=== PATIENT | female | born 1995 | race Caucasian/White ===

== ENCOUNTER 2018-04-01 20:02 | Emergency (ER) | payer OTHER ==
--- NOTE | 2018-04-01 20:52 | ED ---
- HPI Summary HPI Summary: 22F at 6 weeks LMP February 18 presents with cramping for the past week. She states that the cramping has become more intense. She denies any vomiting but admits occasional nausea. She denies any fevers. She denies any diarrhea or constipation. She denies any dysuria, hematuria, urgency or frequency. She denies any vaginal discharge. She denies any vaginal bleeding. She has no medical conditions. - History of Current Complaint Chief Complaint: EDAbdPain Stated Complaint: 6 WEEKS , CRAMPING Time Seen by Provider: 04/01/18 20:20 Pain Intensity: 6 - Allergies/Home Medications Allergies/Adverse Reactions: Allergies Allergy/AdvReac Type Severity Reaction Status Date / Time Penicillins Allergy Rash Verified 04/01/18 20:07 PMH/Surg Hx/FS Hx/Imm Hx Endocrine/Hematology History: Denies: Hx Anticoagulant Therapy Cardiovascular History: Denies: Hx Myocardial Infarction Infectious Disease History: No Infectious Disease History: Denies: Traveled Outside the [place] in Last 30 Days - Family History Known Family History: Negative: Blood Disorder - Social History Alcohol Use: None Substance Use Type: Reports: None Smoking Status (MU): Never Smoked Tobacco Review of Systems Negative: Fever Negative: Chest Pain Negative: Shortness Of Breath Positive: Abdominal Pain, Nausea. Negative: Vomiting All Other Systems Reviewed And Are Negative: Yes Physical Exam - Physical Exam Triage Information Reviewed: Yes Vital Signs Reviewed: Yes Appearance: Positive: Well-Appearing Skin: Positive: Warm, Dry Head/Face: Positive: Normal Head/Face Inspection Eyes: Positive: Normal, Conjunctiva Clear Respiratory/Lung Sounds: Positive: Clear to Auscultation, Breath Sounds Present Cardiovascular: Positive: Normal, RRR Abdomen Description: Positive: Soft, Other: - mild suprapubic tenderness Bowel Sounds: Positive: Present Musculoskeletal: Positive: Normal Neurological: Positive: Normal Psychiatric: Positive: Normal Diagnostics - Vital Signs Vital Signs Temp Pulse Resp BP Pulse Ox 04/01/18 20:04 98.6 F 90 16 123/74 98 - Laboratory Result Diagrams: 04/01/18 21:18 04/01/18 21:18 Lab Statement: Any lab studies that have been ordered have been reviewed, and results considered in the medical decision making process. - Ultrasound No standard instances Ultrasound Interpretation: Positive (See Comments) - single intrauterine gestation, complex focus in left ovary Ultrasound Interpretation Completed By: Radiologist Course/Dx - Course Course Of Treatment: 22F at 6 weeks LMP February 18 presents with cramping for the past week. She states that the cramping has become more intense. She denies any vomiting but admits occasional nausea. She denies any fevers. She denies any diarrhea or constipation. She denies any dysuria, hematuria, urgency or frequency. She denies any vaginal discharge. She denies any vaginal bleeding. She has no medical conditions. on exam has tenderness suprapubic. wbc normal. hcg [id number]. transvaginal u/s shows intrauterine and ovarian cyst. will have follow up with ob. patient understand and agrees with plan. - Differential Diagnosis/HQI/PQRI: Spontaneous , Ectopic , Intrauterine - Diagnoses Provider Diagnoses: Intrauterine , Ovarian cyst Discharge - Sign-Out/Discharge Documenting (check all that apply): Discharge/Admit/Transfer - Discharge Plan Condition: Good Disposition: HOME Patient Education Materials: First Trimester (ED) Referrals: Daljit Johnson MD [Primary Care Provider] - Additional Instructions: Can take Tylenol for pain every 6 hours Follow up with obgyn Return to ED if develop any new or worsening symptoms - Billing Disposition and Condition Condition: GOOD Disposition: HOME
[2018-04-01 21:26] LABS: ABS Basophils 0.1 10^3/ul (0-0.2); ABS Eosinophils 0.4 10^3/ul (0-0.6); ABS Monocytes 0.7 10^3/ul (0-0.8); ABS Neutrophils 5.9 10^3/ul (1.5-7.7); ABS Nucleated RBC 0 10^3/ul; Eosinophil % 3.7 % (0-6); Hematocrit 40 % (35-47); Hemoglobin 13.5 g/dl (12.0-16.0); Mean Corpuscular HGB Conc 34 g/dl (31-36); Mean Corpuscular Hemoglobin 30 pg (27-31); Mean Corpuscular Volume 87 fL (80-97); Mean Platelet Volume 7.3 um3 (7.4-10.4); Nucleated Red Blood Cells % 0; Platelet Count 267 10^3/ul (150-450); Red Blood Count 4.56 10^6/ul (4.0-5.4); Red Cell Distribution Width 13 % (10.5-15)
[2018-04-01 21:33] LABS: INR 0.98 (0.77-1.02)
[2018-04-01 23:25] LABS: Urine Appearance Clear; Urine Blood Negative (Negative); Urine Color Straw; Urine Ketones Negative (Negative); Urine Protein Negative (Negative); Urine Specific Gravity 1.006 (1.010-1.030); Urine Urobilinogen Negative (Negative)
[2018-04-01 23:32] VITALS: BP 107/70
--- NOTE | 2018-04-02 07:44 | RAD ---
HISTORY: Pelvic pain in the first trimester COMPARISONS: None TECHNIQUE: Multiple transverse and longitudinal ultrasound images were obtained of the pelvis using grayscale, color flow, spectral and M-mode sonographic imaging. FINDINGS: UTERUS: The uterus is normal in shape, size, contour, and echotexture. GESTATION: There is a single live intrauterine gestation. The crown-rump length measures 0.44 cm yielding a gestational age of 6 weeks and 1 day. The mean gestational sac diameter measures 1.36 centimeters yielding a gestational age of 6 weeks and 1 day. cardiac motion is detected at a rate of 101 beats per minute. CUL-DE-SAC: There is no free fluid within the cul-de-sac. RIGHT OVARY: The right ovary measures 2.6 x 1.4 x 2.7 cm. LEFT OVARY: The left ovary measures 4.8 x 1.6 x 3.9 cm. And the left ovary there is an echogenic and avascular structure measuring 1.9 cm in greatest dimension which could be the corpus luteum. IMPRESSION: Single live intrauterine gestation with a crown-rump length yielding a gestational age of 6 weeks and 1 day. No movement is observed and the heart rate is low measuring 101 bpm.
== END 2018-04-01 23:30 | disposition home or self-care (01) ==
LOC: ED 20:02
DX: O34.81 Maternal care for other abnormalities of pelvic organs, first trimester (principal); N83.202 Unspecified ovarian cyst, left side; R11.0 Nausea; Z3A.01 Less than 8 weeks gestation of pregnancy; Z88.0 Allergy status to penicillin
CPT/HCPCS: 36415; 76817; 80053; 81003; 84702; 85025; 85610; 85730; 86900; 86901; 99282

== ENCOUNTER 2018-06-17 15:24 | Emergency (ER) | payer OTHER ==
[2018-06-17] MEDS ORDERED: NS 0.9% 1000 ML* 1,000 ML IV ONE (17:56)
[2018-06-17] MEDS ORDERED: Metoclopramide IV* 5 MG/ML 2 ML VIAL IV ONE (18:17)
[2018-06-17 19:47] LABS: ABS Basophils 0.1 10^3/ul (0-0.2); ABS Eosinophils 0.2 10^3/ul (0-0.6); ABS Lymphocytes 2.4 10^3/ul (1.0-4.8); ABS Monocytes 0.7 10^3/ul (0-0.8); ABS Neutrophils 10.6 10^3/ul (1.5-7.7); ABS Nucleated RBC 0 10^3/ul; Eosinophil % 1.6 % (0-6); Hematocrit 38 % (35-47); Hemoglobin 12.8 g/dl (12.0-16.0); Lymphocyte % 17.1 % (25-47); Mean Corpuscular HGB Conc 34 g/dl (31-36); Mean Corpuscular Hemoglobin 30 pg (27-31); Mean Corpuscular Volume 87 fL (80-97); Mean Platelet Volume 7.1 um3 (7.4-10.4); Nucleated Red Blood Cells % 0; Platelet Count 307 10^3/ul (150-450); Red Blood Count 4.29 10^6/ul (4.00-5.40); Red Cell Distribution Width 13 % (10.5-15); White Blood Count 13.9 10^3/ul (3.5-10.8)
[2018-06-17 19:55] LABS: Urine Appearance Clear; Urine Blood Negative (Negative); Urine Color Yellow; Urine Ketones 2+ (Negative); Urine Protein 1+(30 mg/dL) (Negative); Urine Red Blood Cell 2+(6-10/hpf) (Absent); Urine Specific Gravity 1.027 (1.010-1.030); Urine Urobilinogen Negative (Negative); Urine White Blood Cell Absent (Absent)
[2018-06-17 20:07] LABS: EGFR Non-African American 131.9 (>60)
[2018-06-17] MEDS ORDERED: Magnesium Sulfate 1 GM IV* 1 GM/100 ML BAG IV ONE (20:15)
[2018-06-17] MEDS ORDERED: Magnesium Oxide TAB* 400 MG PO ONE (20:18)
--- NOTE | 2018-06-17 20:25 | ED ---
GI/ HPI - HPI Summary HPI Summary: 17 week presents with ongoing hyperemesis gravidarum. She is here per recommendation of her OB she's not been able to hold down liquids and feels that she is getting behind. She has antibiotics at home that she's tried already including Reglan and dicloxacillin. She reports she has some abdominal cramping but no sharp pain. Denies fevers, chills, headache, visual change, chest pain, shortness of breath. No other signs or symptoms of infection. Simply reports she's here for hydration and nausea control. She's had an ultrasound already heart reveals a normal intrauterine . Will check heart rate. - History of Current Complaint Chief Complaint: EDNauseaVomitDiarrh Time Seen by Provider: 06/17/18 17:48 Stated Complaint: DEHYDRATION/17 WKS PREG Hx Obtained From: Patient Pain Intensity: 0 - Allergy/Home Medications Allergies/Adverse Reactions: Allergies Allergy/AdvReac Type Severity Reaction Status Date / Time Penicillins Allergy Rash Verified 04/01/18 20:07 PMH/Surg Hx/FS Hx/Imm Hx Previously Healthy: Yes Endocrine/Hematology History: Denies: Hx Anticoagulant Therapy Cardiovascular History: Denies: Hx Myocardial Infarction Psychiatric History: Reports: Hx Anxiety, Hx Depression - stopped meds for Infectious Disease History: No Infectious Disease History: Denies: Traveled Outside the [place] in Last 30 Days - Family History Known Family History: Negative: Blood Disorder - Social History Lives: With Family - partner Alcohol Use: None Hx Substance Use: No Substance Use Type: Reports: None Hx Tobacco Use: No Smoking Status (MU): Never Smoked Tobacco Review of Systems Positive: Fatigue - wiped out. Negative: Fever, Chills Cardiovascular: Negative Respiratory: Negative Positive: Vomiting, Nausea. Negative: Abdominal Pain, Diarrhea - constipated Positive: other. Negative: burning, dysuria, discharge, frequency, flank pain, hematuria, incontinence, pain, urgency Neurological: Negative Psychological: Normal - denies anxiety or depression as being an issue today All Other Systems Reviewed And Are Negative: Yes Physical Exam Triage Information Reviewed: Yes Vital Signs On Initial Exam: Initial Vitals Temp Pulse Resp BP Pulse Ox 98.7 F 94 16 140/89 98 06/17/18 15:29 06/17/18 15:29 06/17/18 15:29 06/17/18 15:29 06/17/18 15:29 Vital Signs Reviewed: Yes Appearance: Positive: Well-Appearing, No Pain Distress - frustrated but comfortable, Well-Nourished Skin: Positive: Warm, Skin Color Reflects Adequate Perfusion, Dry - no rash Head/Face: Positive: Normal Head/Face Inspection Eyes: Positive: Normal, EOMI, Conjunctiva Clear - anicteric sclera ENT: Positive: Hearing grossly normal, Pharynx normal - mucosa moist Neck: Positive: Supple Respiratory/Lung Sounds: Positive: Breath Sounds Present. Negative: Rales, Rhonchi, Wheezes Cardiovascular: Positive: Normal, RRR, S1, S2. Negative: Murmur, Rub, Leg Edema Left, Leg Edema Right Abdomen Description: Positive: No Organomegaly, Soft, Other: - mild generalized TTP - feels crampy/tight Bowel Sounds: Positive: Present Musculoskeletal: Positive: Normal, Strength/ROM Intact Neurological: Positive: Normal, Sensory/Motor Intact, Alert, Oriented to Person Place, Time, CN Intact II-III Psychiatric: Positive: Normal - concerned but calm, polite and cooperative Diagnostics - Vital Signs Vital Signs Temp Pulse Resp BP Pulse Ox 06/17/18 20:06 82 113/71 97 06/17/18 20:00 82 97 06/17/18 19:37 77 98 06/17/18 19:36 88 127/75 98 06/17/18 15:29 98.7 F 94 16 140/89 98 - Laboratory Lab Results: Lab Results 06/17/18 06/17/18 06/17/18 Range/Units 17:56 19:18 19:18 WBC 13.9 H (3.5-10.8) 10^3/ul RBC 4.29 (4.00-5.40) 10^6/ul Hgb 12.8 (12.0-16.0) g/dl Hct 38 (35-47) % MCV 87 (80-97) fL MCH 30 (27-31) pg MCHC 34 (31-36) g/dl RDW 13 (10.5-15) % Plt Count 307 (150-450) 10^3/ul MPV 7.1 L (7.4-10.4) um3 Neut % (Auto) 75.9 (38-83) % Lymph % (Auto) 17.1 L (25-47) % Loup % (Auto) 5.0 (0-7) % Eos % (Auto) 1.6 (0-6) % Baso % (Auto) 0.4 (0-2) % Absolute Neuts (auto) 10.6 H (1.5-7.7) 10^3/ul Absolute Lymphs (auto) 2.4 (1.0-4.8) 10^3/ul Absolute Monos (auto) 0.7 (0-0.8) 10^3/ul Absolute Eos (auto) 0.2 (0-0.6) 10^3/ul Absolute Basos (auto) 0.1 (0-0.2) 10^3/ul Absolute Nucleated RBC 0 10^3/ul Nucleated RBC % 0 Sodium 135 (135-145) mmol/L Potassium 3.4 L (3.5-5.0) mmol/L Chloride 104 (101-111) mmol/L Carbon Dioxide 23 (22-32) mmol/L Anion Gap 8 (2-11) mmol/L BUN 5 L (6-24) mg/dL Creatinine 0.56 (0.51-0.95) mg/dL Est GFR ( Amer) 159.6 (>60) Est GFR (Non-Af Amer) 131.9 (>60) BUN/Creatinine Ratio 8.9 (8-20) Glucose 80 (70-100) mg/dL Lactic Acid (0.5-2.0) mmol/L Calcium 8.6 (8.6-10.3) mg/dL Magnesium 1.7 L (1.9-2.7) mg/dL Total Bilirubin 0.50 (0.2-1.0) mg/dL AST 15 (13-39) U/L ALT 21 (7-52) U/L Alkaline Phosphatase 71 (34-104) U/L Total Protein 6.4 (6.4-8.9) g/dL Albumin 3.6 (3.2-5.2) g/dL Globulin 2.8 (2-4) g/dL Albumin/Globulin Ratio 1.3 (1-3) Urine Color Yellow Urine Appearance Clear Urine pH 5.0 (5-9) Ur Specific Jamul 1.027 (1.010-1.030) Urine Protein 1+(30 mg/dl) A (Negative) Urine Ketones 2+ A (Negative) Urine Blood Negative (Negative) Urine Nitrate Negative (Negative) Urine Bilirubin Negative (Negative) Urine Urobilinogen Negative (Negative) Ur Leukocyte Esterase Negative (Negative) Urine WBC (Auto) Absent (Absent) Urine RBC (Auto) 2+(6-10/hpf) A (Absent) Ur Squamous Epith Cells Present A (Absent) Urine Bacteria Absent (Absent) Urine Glucose Negative (Negative) 06/17/18 Range/Units 19:18 WBC (3.5-10.8) 10^3/ul RBC (4.00-5.40) 10^6/ul Hgb (12.0-16.0) g/dl Hct (35-47) % MCV (80-97) fL MCH (27-31) pg MCHC (31-36) g/dl RDW (10.5-15) % Plt Count (150-450) 10^3/ul MPV (7.4-10.4) um3 Neut % (Auto) (38-83) % Lymph % (Auto) (25-47) % Loup % (Auto) (0-7) % Eos % (Auto) (0-6) % Baso % (Auto) (0-2) % Absolute Neuts (auto) (1.5-7.7) 10^3/ul Absolute Lymphs (auto) (1.0-4.8) 10^3/ul Absolute Monos (auto) (0-0.8) 10^3/ul Absolute Eos (auto) (0-0.6) 10^3/ul Absolute Basos (auto) (0-0.2) 10^3/ul Absolute Nucleated RBC 10^3/ul Nucleated RBC % Sodium (135-145) mmol/L Potassium (3.5-5.0) mmol/L Chloride (101-111) mmol/L Carbon Dioxide (22-32) mmol/L Anion Gap (2-11) mmol/L BUN (6-24) mg/dL Creatinine (0.51-0.95) mg/dL Est GFR ( Amer) (>60) Est GFR (Non-Af Amer) (>60) BUN/Creatinine Ratio (8-20) Glucose (70-100) mg/dL Lactic Acid 0.7 (0.5-2.0) mmol/L Calcium (8.6-10.3) mg/dL Magnesium (1.9-2.7) mg/dL Total Bilirubin (0.2-1.0) mg/dL AST (13-39) U/L ALT (7-52) U/L Alkaline Phosphatase (34-104) U/L Total Protein (6.4-8.9) g/dL Albumin (3.2-5.2) g/dL Globulin (2-4) g/dL Albumin/Globulin Ratio (1-3) Urine Color Urine Appearance Urine pH (5-9) Ur Specific Jamul (1.010-1.030) Urine Protein (Negative) Urine Ketones (Negative) Urine Blood (Negative) Urine Nitrate (Negative) Urine Bilirubin (Negative) Urine Urobilinogen (Negative) Ur Leukocyte Esterase (Negative) Urine WBC (Auto) (Absent) Urine RBC (Auto) (Absent) Ur Squamous Epith Cells (Absent) Urine Bacteria (Absent) Urine Glucose (Negative) Result Diagrams: 06/17/18 19:18 06/17/18 19:18 Lab Statement: Any lab studies that have been ordered have been reviewed, and results considered in the medical decision making process. Re-Evaluation - Re-Evaluation First Eval Change: Improved - pt reports nausea resolved and ab discomfort/cramping resolved - energy feels better - would like to go home GIGU Course/Dx - Course Course Of Treatment: Pt here w/ HG - after reglan and IVF, feels much better. Magnesium was 1.7 - offered to replace via IV or PO - pt reports she wants PO. Will f/u w/ OB tomorrow and return to ED if any danger s/sx present. - Diagnoses Provider Diagnoses: Hyperemesis gravidarum Discharge - Sign-Out/Discharge Documenting (check all that apply): Patient Departure - Discharge Plan Condition: Stable Disposition: HOME Patient Education Materials: Hyperemesis Gravidarum (ED) Referrals: Jazmine Dennis MD [Medical Doctor] - Additional Instructions: stay hydrated - take home reglan to prevent return of vomiting Follow-up with OBGYN tomorrow as scheduled Return to ED if you develop abdominal pain, fever, chills, intractable vomiting , chest pain, difficulty breathing or swallowing or heavy vaginal bleeding - Billing Disposition and Condition Condition: STABLE Disposition: Home
[2018-06-17 21:15] VITALS: BP 120/79
== END 2018-06-17 21:10 | disposition home or self-care (01) ==
LOC: ED 15:24
DX: O21.0 Mild hyperemesis gravidarum (principal); Z3A.17 17 weeks gestation of pregnancy; Z88.0 Allergy status to penicillin
CPT/HCPCS: 36415; 80053; 81003; 81015; 83605; 83735; 85025; 96374; 99284; J2765; J3475

== ENCOUNTER 2018-11-06 06:29 | Inpatient (IN) | payer OTHER ==
[2018-11-06] MEDS ORDERED: Lactated Ringers 1000 ML Bag* 1,000 ML IV ONE (09:02)
--- NOTE | 2018-11-06 09:11 | HP ---
General Information - Reason for Visit Patient has had increasing intensity and length of contractions since approx 0130. Thinks she may have been leaking fluid - General Information Maternal Age: 23 Grav: 1 Para: 0 SAB: 0 IEA: 0 Estimated Due Date: 11/25/18 Determined By: LMP Maternal Blood Type and Rh: O Positive - Results this Serology/RPR Result: Non-Reactive Rubella Result: Immune HBsAg Result: Negative HIV Result: Negative GBS Culture Result: Negative Past Medical History Delivery History: See Records Delivery History Comment: no previous pregnancies Pertinent Past Medical History: See Records Past Medical History Comment: Anxiety/depression Pertinent Past Surgical History: See Records Past Surgical History Comment: [place] teeth 2009 Appendectomy 2005 Pertinent Family History: Non-Contributory Family History Comment: Depression anxiety stroke pancreatic ca alcoholism [place] - Antepartal Records Antepartal Records: Reviewed, Complicated by: - Nausea/vomiting Review of Systems Constitutional: Uncomfortable CV Complaint: No Respiratory: Shortness of Breath: No Gastrointestinal: Normal Bowel Movement, Nausea Genitourinary: Leaking Fluid, No Dysuria, No Bleeding Musculoskeletal: Contractions Neurological: No Headache, No Visual Changes Movement: Normal Exam Allergies/Adverse Reactions: Allergies Penicillins Allergy (Verified 04/01/18 20:07) Rash BP 124/80 T 97.3 HR 88 RR 18 O2 99 Lab Values - Entire Visit: Laboratory Tests 11/06/18 07:06 Vag Amniotic Fld Detect Positive - Measurements Height: 5 ft 8 in Weight: 197 lb Weight in lbs: [id number] Body Mass Index (BMI): 29.9 Pre- Weight: 150 lb Weight Gained This : 47 lbs and 0 ozs - Exam Breast: Breast Exam Deferred CVA: No CVA Tenderness Extremities: No Edema Heart: Normal Rhythm/Heart Sounds HEENT: No Significant Findings Lungs: Clear Bilaterally Rectal: Rectal Exam Deferred Reflexes: DTR 2+, - - no clonus Thyroid: - - WNL on entry to care - Abdominal Exam Abdomen Exam: Non-Tender, Fundal Height Consistent with Dates - Ultrasound/Biophysical Profile Ultrasound Status: Not Done Targeted Exam Findings See L&D Outpatient Visit Provider Note for Findings: Yes Estimated Weight: 6.5-7lb Cervical Exam: 3cm Effacement: 90% Station: -1 Presenting Part: Vertex Membrane Status: Questionable SROM Amniotic Fluid Evaluation: Positive ROM Plus Bleeding/Discharge: None EFM Findings - External Monitor Findings Baseline Heart Rate: 135 External Monitor Findings: Accelerations Present, No Pattern of Variable or Late Decelerations, Variability Moderate Contractions: Regular, Mild, Moderate, < 45 Seconds Contraction Frequency: q 6-7 min Assessment/Plan - Assessment IUP @ 37+2 weeks gestation with probable spontaneous rupture of membranes in early labor - Plan Plan: Admit - Anticipate Vaginal Delivery Plan Comment: Admit to L&D, patient will desire labor epidural when contractions stronger. Anticipate SVB. - Date/Time of Admission Date of Admission: 11/06/18 Time of Admission: 08:02
[2018-11-06] MEDS ORDERED: Ondansetron TAB* 4 MG PO PRN (09:21)
[2018-11-06] MEDS ORDERED: Promethazine TAB* 25 MG PO PRN (09:21)
[2018-11-06] MEDS ORDERED: Lactated Ringers 1000 ML Bag* 1,000 ML IV SCH ×2 (10:00→23:45)
[2018-11-06 12:40] LABS: ABS Basophils 0 10^3/ul (0-0.2); ABS Eosinophils 0.1 10^3/ul (0-0.6); ABS Monocytes 0.6 10^3/ul (0-0.8); ABS Neutrophils 10.7 10^3/ul (1.5-7.7); ABS Nucleated RBC 0 10^3/ul; Eosinophil % 0.9 %; Hematocrit 32 % (35-47); Hemoglobin 10.6 g/dl (12.0-16.0); Lymphocyte % 14.6 %; Mean Corpuscular HGB Conc 33 g/dl (31-36); Mean Corpuscular Hemoglobin 26 pg (27-31); Mean Corpuscular Volume 78 fL (80-97); Mean Platelet Volume 7.9 fL (7.4-10.4); Nucleated Red Blood Cells % 0; Platelet Count 345 10^3/ul (150-450); Red Blood Count 4.12 10^6/ul (4.00-5.40); Red Cell Distribution Width 14 % (10.5-15); White Blood Count 13.4 10^3/ul (3.5-10.8)
[2018-11-06] MEDS ORDERED: OBEPIDURAL* 250 ML EPIDURAL ONE (15:53)
[2018-11-06] MEDS ORDERED: fentaNYL* 50 MCG/ML 2 ML VIAL (100 MCG VIAL) ONE (16:06)
[2018-11-06] MEDS ORDERED: Oxytocin in LR* 20 UNITS/1,000 ML BAG IVPB SCH ×2 (21:00→23:45)
[2018-11-06] MEDS ORDERED: Witch Hazel PAD* JAR TOPICAL PRN (23:12)
[2018-11-06] MEDS ORDERED: Glycerin ADULT SUPP PR PRN (23:12)
[2018-11-06] MEDS ORDERED: Acetaminophen TAB* 325 MG PO PRN (23:12)
--- NOTE | 2018-11-06 23:41 | PROCNOTE ---
[facility] OB: Delivery Note - Delivery A Date of : 11/06/18 Time of : 22:29 [place] Sex: Male Weight at : 7 lb 3 oz Score 1 Minute: 9 Score 5 Minutes: 9 Gestational Age in Weeks and Days at Delivery: 37 Weeks and 2 Days Delivery Method: Spontaneous Vaginal Labor: Spontaneous Did Patient attempt ?: N/A, No Previous Amniotic Fluid: Clear Estimated Blood Loss: 250 Anesthesia/Analgesia: CEI for Labor Delivered By: Mary [place] - Nursery Level of Nursery: Regular/Bedside - Perineum Perineal Injury: 1st Degree Perineal Injury Comment: Perineal and bilateral labial Perineal Repair: By Delivering Practioner - Events Delivery Events of Note: Pitocin During Labor, Pitocin Only After Delivery - Additional Delivery Notes Additional Delivery Notes: Patient admitted in early labor. Received epidural as desired with excellent relief. Progressed to complete with urge to push. LOL 10'7", pushed 19 min. Baby born @ 2229 OA to MANI, shoulders following with maternal efforts. Baby to maternal abdomen with spontaneous respirations and HR >110. Apgars 9, 9. Cord doubly clamped and cut by FOB once pulsations ceased. Placenta delivered with gentle cord traction @ 2237. Fundus firm with pitocin infusing. Repair as above. EBL 250ml. Baby at breast to initiate breast feeding. Mother and baby stable. Baby name [email or web address]
[2018-11-07] MEDS: Dibucaine 1% 28.35 GM TUBE PR PRN ×2 (00:27→08:31)
[2018-11-07] MEDS: Ibuprofen TAB* 600 MG PO PRN ×4 (00:27→20:49)
[2018-11-07] MEDS: CMCS Escitalopram (NF) 5 MG TAB PO SCH ×2 (00:53→20:50)
[2018-11-07 06:52] LABS: ABS Basophils 0 10^3/ul (0-0.2); ABS Eosinophils 0 10^3/ul (0-0.6); ABS Lymphocytes 2.5 10^3/ul (1.0-4.8); ABS Neutrophils 13.7 10^3/ul (1.5-7.7); ABS Nucleated RBC 0 10^3/ul; Eosinophil % 0.2 %; Hematocrit 29 % (35-47); Hemoglobin 9.6 g/dl (12.0-16.0); Lymphocyte % 14.3 %; Mean Corpuscular HGB Conc 33 g/dl (31-36); Mean Corpuscular Hemoglobin 26 pg (27-31); Mean Corpuscular Volume 78 fL (80-97); Mean Platelet Volume 7.4 fL (7.4-10.4); Nucleated Red Blood Cells % 0; Platelet Count 304 10^3/ul (150-450); Red Blood Count 3.68 10^6/ul (4.00-5.40); Red Cell Distribution Width 15 % (10.5-15); White Blood Count 17.2 10^3/ul (3.5-10.8)
[2018-11-07] MEDS: Ferrous Gluconate TAB* 324 MG TAB PO SCH ×2 (08:28→20:49)
[2018-11-07] MEDS: Docusate CAP* 100 MG PO SCH ×3 (08:28→20:49)
[2018-11-08] MEDS: Ibuprofen TAB* 600 MG PO PRN ×2 (02:47→07:57)
[2018-11-08] MEDS: Ferrous Gluconate TAB* 324 MG TAB PO SCH (07:57)
[2018-11-08] MEDS: Docusate CAP* 100 MG PO SCH (07:58)
[2018-11-08 08:05] VITALS: BP 124/69
[2018-11-08] MEDS: Dibucaine 1% 28.35 GM TUBE PR PRN (09:22)
== END 2018-11-08 14:50 | disposition home or self-care (01) | DRG 807 ==
LOC: MCHOBOUT 06:29 → MCHOB 08:02
PROVIDERS: ADMIT Midwife; ATTEND Midwife
PROC: 10E0XZZ Delivery of Products of Conception, External Approach (ICD-10-PCS; principal; 2018-11-06)
PROC: 4A1HXCZ Monitoring of Products of Conception, Cardiac Rate, External Approach (ICD-10-PCS; 2018-11-06)
PROC: 0HQ9XZZ Repair Perineum Skin, External Approach (ICD-10-PCS; 2018-11-06)
PROC: 0UQMXZZ Repair Vulva, External Approach (ICD-10-PCS; 2018-11-06)
DX: O99.344 Other mental disorders complicating childbirth (principal); Z37.0 Single live birth; F41.9 Anxiety disorder, unspecified; F32.9 Major depressive disorder, single episode, unspecified; O70.0 First degree perineal laceration during delivery; O90.81 Anemia of the puerperium; Z3A.37 37 weeks gestation of pregnancy; Z88.0 Allergy status to penicillin; O76 Abnormality in fetal heart rate and rhythm complicating labor and delivery
CPT/HCPCS: 36415; 84112; 85025; 86850; 86900; 86901; A9270-GY; J3010

== ENCOUNTER 2019-02-11 08:12 | Emergency (ER) | payer OTHER ==
--- OUTSIDE RECORDS SUMMARY | 2019-02-11 08:23 | XMS REPORT | Continuity of Care Document ---
:1995 External Reference #:[id number] Author Name Mary Hill CNM Address [address] [place] [address] Care Team Providers Name Role Phone Daljit Johnson M.D. Primary Care Physician Unavailable Payers Date Identification Numbers Payment Provider Subscriber Policy Number: [id number] [employer] Ppo Santiago Simms PayID: [id number] [address] [place] [address] Advance Directives Description No Information Available Problems Date Description Provider Status Onset: 04/30/2018 Primigravida Chelle Hagan CNM Active Family History Date Family Member(s) Observation Comments Father A&W Mother A&W First Sister Depression First Sister Anxiety Paternal Grandfather due to Pancreatic () Cancer Paternal Grandfather Alcoholism Paternal Grandmother due to Stroke () Onset: (age 77 Years) Maternal Grandfather CA Maternal Grandfather Alcoholism Maternal Grandmother A&W Social History Type Date Description Comments Sex Unknown Education Highest level completed, Bachelor's Degree Marital Status Lives With Pets 3 dogs Pets 1 cat 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 Environmental Hazards Not exposed to any environmental hazards Environmental Hazards Low Lead Risk Cigarette Use Former Cigarette Smoker Quit 2013 ETOH Use Alcohol Use Prior To 1 drink/week Recreational Drug Use Denies Drug Use Exercise Type/Frequency Exercises regularly Seat Belt/Car Seat Always uses seat belt STD's No STD History Allergies, Adverse Reactions, Alerts Date Description Reaction Status Severity Comments 04/30/2018 Penicillins rash Active Moderate 08/21/2018 Seasonal Allergies Active 04/30/2018 NKDA Inactive Medications Medication Date Status Form Strength Qnty SIG Indications Ordering Provider Surinder (52 MG) 01/17/ Active IUD 20mcg/24HR Erianna 2019 Hill, CNM Escitalopram 09/07/ Active Tablets 5mg 90tab 1 by mouth Erianna Oxalate 2018 s every day Hill, CNM Promethazine HCL 06/19/ Active Tablets 12.5mg 60tab 1-2 tab by Erianna 2017 s mouth Hill, every 4-6 CNM hours as needed for nausea and vomiting Ondansetron 05/02/ Active Tablets 4mg 30tab 1 tablet Shirley 2017 Dispers s dissolved Brown, in the CNM mouth every 6-8 hours as needed for nausea and vomiting Multi / Active Capsules 27-0.8-250 Unknown +Dha 0000 mg Zyrtec Allergy / Active Capsules 10mg Unknown 0000 Magnesium / Active Capsules 500mg Unknown 0000 Diclegis 06/19/ Hx Tablets DR 10-10mg 100ta 2 tabs po Erianna 2018 - bs qhs. if sx Hill, 07/09/ persist CNM 2017 increase to 1 tab po qam and 2 tabs po qhs. may add mid day dose of 1 tab prn. mdd 4 tabs Metoclopramide 05/02/ Hx Tablets 5mg 30tab 1-2 tabs Erianna HCL 2017 - s by mouth Hill, 06/19/ every 6 CNM 2018 hours as needed for nausea Escitalopram 04/30/ Hx Tablets 10mg 90tab 1 by mouth Mahrie Oxalate 2017 - s every day Hagan, CN2017 Diclegis 04/12/ Hx Tablets DR 10-10mg 30tab 2 tabs po Mahrie 2017 - s qhs. if sx Hagan, 06/18/ persist CNM 2017 increase to 1 tab po qam and 2 tabs po qhs. may add mid day dose of 1 tab prn. mdd 4 tabs Medications Administered in Office Medication Date Status Form Strength Qnty SIG Indications Ordering Provider PT SCRN Tbco Administered Injection Moreno Venegas Id as Non User Ainsley Rodriguez M.D. Immunizations CPT Code Status Date Vaccine Lot # [id number] Given 09/24/2018 Tetnus, Diptheria Toxoids And Acellular Pertussis, [id number] PT > 7Yrs Old [id number] Given 09/07/2018 Influenza Vaccine Quadrivalent Preser/Antibiotic [id number] Free Im Use Vital Signs Date Vital Result Comment 01/17/2019 8:50am BP Systolic 104 mmHg BP Diastolic 68 mmHg Height 69 inches 5'9" Weight 161.00 lb BMI (Body Mass Index) 23.8 kg/m2 Last Menstrual Period [id number] 1 Parity 1 12/14/2018 9:17am BP Systolic 118 mmHg BP Diastolic 76 mmHg Height 69 inches 5'9" Weight 169.00 lb BMI (Body Mass Index) 25.0 kg/m2 Last Menstrual Period [id number] 1 Parity 1 08/21/2018 3:05pm BP Systolic 122 mmHg BP Diastolic 66 mmHg Height 69 inches 5'9" Weight 177.00 lb BMI (Body Mass Index) 26.1 kg/m2 Last Menstrual Period [id number] 1 Parity 0 06/17/2018 12:00am BP Systolic 120 mmHg BP Diastolic 79 mmHg Body Temperature 99.4 F Heart Rate 90 /min Respiratory Rate 16 /min Height 69 inches Weight 150.00 lb BMI (Body Mass Index) 22.1 kg/m2 04/30/2018 7:49am BP Systolic 130 mmHg BP Diastolic 68 mmHg Height 67.5 inches 5'7.50" Weight 150.00 lb BMI (Body Mass Index) 23.1 kg/m2 Last Menstrual Period [id number] 1 Parity 0 Results Test Date Facility Test Result H/L Range Note Laboratory test 11/06/2018 [facility] Rupture of Positive 1 [place] [address] Membranes [phone] Urinalysis Profile 10/30/2018 [facility] Urine Color Yellow 2 [place] [address] [phone] Urine Appearance Cloudy Urine Specific [place] 1.016 N 1.010-1.030 Urine pH 6.0 N 5-9 Urine Urobilinogen Negative Negative Urine Ketones Negative Negative Urine Protein Negative Negative Urine Leukocytes Negative Negative Urine Blood Negative Negative Urine Nitrite Negative Negative Urine Bilirubin Negative Negative Urine Glucose 1+(50 mg/dL) Abnormal Negative Laboratory test 10/23/2018 [facility] Group B Strep SEE RESULT 3, 4 [place] [address] Culture Screen BELOW [phone] Laboratory test 10/17/2018 [facility] Rupture of Negative 5 [place] [address] Membranes [phone] Comp Metabolic 10/09/2018 [facility] Sodium 134 mmol/L Low 135 - 6 [place] [address] 145 [phone] Potassium 4.3 mmol/L N 3.5-5.0 Chloride 105 mmol/L N 101-111 Co2 Carbon Dioxide 23 mmol/L N 22-32 Anion Gap 6 mmol/L N 2-11 Glucose 80 mg/dL N 70-100 Blood Urea Nitrogen 10 mg/dL N 6-24 Creatinine 0.50 mg/dL Low 0.51-0.95 BUN/Creatinine Ratio 20.0 N 8-20 Calcium 8.4 mg/dL Low 8.6-10.3 Total Protein 5.7 g/dL Low 6.4-8.9 Albumin 3.1 g/dL Low 3.2-5.2 Globulin 2.6 g/dL N 2-4 Albumin/Globulin Ratio 1.2 N 1-3 Total Bilirubin 0.20 mg/dL N 0.2-1.0 Alkaline Phosphatase 111 U/L High 34-104 Alt 11 U/L N 7-52 Ast 12 U/L Low 13-39 Egfr Non- 150.3 >60 Egfr 181.9 >60 7 Laboratory test 10/09/2018 [facility] Uric Acid 2.5 mg/dL N 2.3-6.6 8 [place] [address] [phone] CBC With No Diff 10/09/2018 [facility] White Blood 12.2 High 3.5-10.8 [place] [address] Count 10^3/uL [phone] Red Blood Count 3.97 10^6/uL Low 4.00-5.40 Hemoglobin 10.7 g/dL Low 12.0-16.0 Hematocrit 33 % Low 35-47 Mean Corpuscular Volume 82 fL N 80-97 Mean Corpuscular Hemoglobin 27 pg N 27-31 Mean Corpuscular HGB Conc 33 g/dL N 31-36 Red Cell Distribution Width 13 % N 10.5-15 Platelet Count 335 10^3/uL N 150-450 Mean Platelet Volume 7.4 fL N 7.4-10.4 Laboratory test 10/09/2018 [facility] Bile Acid 2 mcmol/L <= 10 9 [place] [address] [phone] Glucose 09/11/2018 [facility] GTT 3HR (SEE NOTE) 10 [place] 3[place] [address] Gestational Gestational [phone] Laboratory test 09/07/2018 [facility] Glucose 1 HR 147 mg/dL N 70-160 11, [place] [address] Post Prandial 12 [phone] CBC With No 09/07/2018 [facility] White Blood 11.1 High 3.5- 10[place] [address] Count 10^3/uL 8 [phone] Red Blood Count 3.97 10^6/uL Low 4.00-5.40 Hemoglobin 11.5 g/dL Low 12.0-16.0 Hematocrit 34 % Low 35-47 Mean Corpuscular Volume 85 fL N 80-97 Mean Corpuscular Hemoglobin 29 pg N 27-31 Mean Corpuscular HGB Conc 34 g/dL N 31-36 Red Cell Distribution Width 13 % N 10.5-15 Platelet Count 348 10^3/uL N 150-450 Mean Platelet Volume 7.4 um3 N 7.4-10.4 CBC Auto 08/21/2018 [facility] White Blood 14.9 10^3/uL High 3.5-10.8 [place] [address] Count [phone] Red Blood Count 3.85 10^6/uL Low 4.00-5.40 Hemoglobin 11.1 g/dL Low 12.0-16.0 Hematocrit 33 % Low 35-47 Mean Corpuscular Volume 86 fL N 80-97 Mean Corpuscular Hemoglobin 29 pg N 27-31 Mean Corpuscular HGB Conc 34 g/dL N 31-36 Red Cell Distribution Width 12 % N 10.5-15 Platelet Count 378 10^3/uL N 150-450 Mean Platelet Volume 7.4 um3 N 7.4-10.4 Abs Neutrophils 11.1 10^3/uL High 1.5-7.7 Abs Lymphocytes 2.6 10^3/uL N 1.0-4.8 Abs Monocytes 0.9 10^3/uL High 0-0.8 Abs Eosinophils 0.3 10^3/uL N 0-0.6 Abs Basophils 0.1 10^3/uL N 0-0.2 Abs Nucleated RBC 0 10^3/uL Granulocyte % 73.9 % N 38-83 Lymphocyte % 17.2 % Low 25-47 Monocyte % 6.1 % N 0-7 Eosinophil % 2.3 % N 0-6 Basophil % 0.5 % N 0-2 Nucleated Red Blood Cells % 0 GC/Chlamydia Dna 07/09/2018 [facility] Chlamydia Negative Negative [address] [place] [address] trachomatis Rna [phone] Neisseria gonorrhoeae (GC) Rna Negative Negative Urine Drug 07/09/2018 [facility] Urine Amphetamine Negative ng/ mL 14, 15 Comp 20 [place] [address] [phone] Urine Barbiturates Negative ng/mL 16 Urine Benzodiazepines Negative ng/mL 17 Urine Cocaine Negative ng/mL 18 Urine Phencyclidine Negative ng/mL Cutoff: 25 Urine Tetrahydrocannabinol Negative ng/mL Cutoff: 50 19 Creatinine, Urine 51.9 mg/dL Specific Granger 1.004 pH 7.6 Oxidants Negative 20 Adulterants Comment Normal Codeine, Ur Not Detected ng/mL Cutoff: 25 21 Wwptlnz-5-crhe-glucuronide, Ur Not Detected ng/mL 22 Morphine, Ur Not Detected ng/mL Cutoff: 25 23 Gyjccmoc-9-bktb-glucuronide, U Not Detected ng/mL 24 6-monoacetylmorphine, Ur Not Detected ng/mL Cutoff: 25 25 Hydrocodone, Ur Not Detected ng/mL Cutoff: 25 26 Norhydrocodone, Ur Not Detected ng/mL Cutoff: 25 27 Dihydrocodeine, Ur Not Detected ng/mL Cutoff: 25 28 Hydromorphone, Ur Not Detected ng/mL Cutoff: 25 29 Hkjwfnjaeslke7hiijvefmzfxabgi Not Detected ng/mL 30 Oxycodone, Ur Not Detected ng/mL Cutoff: 25 31 Noroxycodone, Ur Not Detected ng/mL Cutoff: 25 32 Oxymorphone, Ur Not Detected ng/mL Cutoff: 25 33 Nobwvlawpbn-0-rggi-glucuronide Not Detected ng/mL 34 Noroxymorphone, Ur Not Detected ng/mL Cutoff: 25 35 Fentanyl, Ur Not Detected ng/mL Cutoff: 2 36 Norfentanyl, Ur Not Detected ng/mL Cutoff: 2 37 Meperidine, Ur Not Detected ng/mL Cutoff: 25 38 Normeperidine, Ur Not Detected ng/mL Cutoff: 25 39 Naloxone, Ur Not Detected ng/mL Cutoff: 25 40 Btpqkwpe-3-ddol-glucuronide, U Not Detected ng/mL 41 Methadone, Ur Not Detected ng/mL Cutoff: 25 42 Eddp, Ur Not Detected ng/mL Cutoff: 25 43 Propoxyphene, Ur Not Detected ng/mL Cutoff: 25 44 Norpropoxyphene, Ur Not Detected ng/mL Cutoff: 25 45 Tramadol, Ur Not Detected ng/mL Cutoff: 25 46 O-desmethyltramadol, Ur Not Detected ng/mL Cutoff: 25 47 Tapentadol, Ur Not Detected ng/mL Cutoff: 25 48 N-desmethyltapentadol, Ur Not Detected ng/mL Cutoff: 50 49 Lpbzqcmzqk-obne-akeikenizpf, U Not Detected ng/mL 50 Buprenorphine, Ur Not Detected ng/mL Cutoff: 5 51 Norbuprenorphine, Ur Not Detected ng/mL Cutoff: 5 52 Norbuprenorphine glucuronide Not Detected ng/mL Cutoff: 20 53 Opioid Interpretation See Comment 54 Sequential Integreated SCRN 2 [place] 06/18/2018 [facility] Interpretation SEE BELOW 55 Risk For Ontd <1:5000 Age Risk Down Syndrome 1:1000 YADY Down Syndrome Risk <1:5000 <1:270 YADY Trisomy 18 Risk <1:5000 <1:100 Calculated Gestational Age 17.4 56 Afp,Serum 38.7 ng/mL Afp Mom 0.98 57 HCG,Serum 13.5 IU/mL HCG Mom 0.52 Estriol,Free 1.00 ng/mL Estriol Mom 0.91 Inhibin A,Dimeric 77 pg/mL Inhibin A Mom 0.47 Rafiq-A 390.2 ng/mL 58 Rafiq-A Mom 0.54 NT Mom 1.21 59 Referring Physician Name NOT GIVEN Referring Physician Phone NOT GIVEN Referring Physician Npi NOT GIVEN Specimen # From Part 1 NOT GIVEN Date Of 1995 Collection Date 06/18/2018 Maternal Weight 150 lbs Est'd Date Of Delivery 05/11/2018 Nuchal Translucency 1.6 mm Burna Rump Length 56.0 mm Ultrasound Date 05/11/2018 Nasal Bone NOT ASSESSED Mother's Ethnic Origin Insulin Depend Diabetic NO Repeat Specimen NO Number Of Fetuses 1 HX Of Neural Tube Defects NO Cigarette Smoker NOT GIVEN Twin B Nasal Bone NG 60 Laboratory Studies 06/17/2018 N2N/CCD Import Urine Specific 1.027 1.010- 1.030 [place] Urine pH 5.0 5-9 Laboratory Studies 06/17/2018 N2N/CCD Import Absolute Basophils 0.1 10^3/ ul 0-0.2 (auto) Absolute Eosinophils (auto) 0.2 10^3/ul 0-0.6 Absolute Lymphocytes (auto) 2.4 10^3/ul 1.0-4.8 Absolute Monocytes (auto) 0.7 10^3/ul 0-0.8 Absolute Neutrophils (auto) 10.6 10^3/ul High 1.5-7.7 Alanine Aminotransferase (Alt/SGPT) 21 U/L 7-52 Albumin 3.6 g/dL 3.2-5.2 Albumin/Globulin Ratio 1.3 1-3 Alkaline Phosphatase 71 U/L 34-104 Anion Gap 8 mmol/L 2-11 Aspartate Amino Transf (Ast/Sgot) 15 U/L 13-39 BUN/Creatinine Ratio 8.9 8-20 Basophils (%) (Auto) 0.4 % 0-2 Blood Urea Nitrogen 5 mg/dL Low 6-24 Calcium Level 8.6 mg/dL 8.6-10.3 Carbon Dioxide Level 23 mmol/L 22-32 Chloride Level 104 mmol/L 101-111 Creatinine 0.56 mg/dL 0.51-0.95 Eosinophils (%) (Auto) 1.6 % 0-6 Estimated GFR () 159.6 Estimated GFR (Non- 131.9 Globulin 2.8 g/dL 2-4 Glucose Level 80 mg/dL 70-100 Hematocrit 38 % 35-47 Hemoglobin 12.8 g/dL 12.0-16.0 Lactic Acid Level 0.7 mmol/L 0.5-2.0 Lymphocytes (%) (Auto) 17.1 % Low 25-47 Magnesium Level 1.7 mg/dL Low 1.9-2.7 Mean Corpuscular Hemoglobin 30 pg 27-31 Mean Corpuscular Hemoglobin Concent 34 g/dL 31-36 Mean Corpuscular Volume 87 fL 80-97 Mean Platelet Volume 7.1 um3 Low 7.4-10.4 Monocytes (%) (Auto) 5.0 % 0-7 Neutrophils (%) (Auto) 75.9 % 38-83 Nucleated RBC Absolute Count (auto) 0 10^3/ul Nucleated Red Blood Cells % 0 Platelet Count 307 10^3/ul 150-450 Potassium Level 3.4 mmol/L Low 3.5-5.0 Red Blood Count 4.29 10^6/ul 4.00-5.40 Red Cell Distribution Width 13 % 10.5-15 Sodium Level 135 mmol/L 135-145 Total Bilirubin 0.50 mg/dL 0.2-1.0 Total Protein 6.4 g/dL 6.4-8.9 White Blood Count 13.9 10^3/ul High 3.5-10.8 Sequential Integrated SCRN 1 [place] 05/11/2018 [facility] Interpretation SEE BELOW 61 Age Risk Down Syndrome 1:770 YADY Down Syndrome Risk IN PROCESS <1:50 YADY Trisomy 18 Risk IN PROCESS <1:100 Calculated Gestational Age 12.0 62 Rafiq-A 390.2 ng/mL 63 Rafiq-A Mom 0.54 HCG,Serum 55.3 IU/mL HCG Mom 0.60 NT Mom 1.21 64 Referring Physician Name ANAYA/TEGAN <SEE NOTE> 65 Referring Physician 66 Referring Physician Npi [id number] 67 Date Of 1995 68 Collection Date 05/11/2018 69 Maternal Weight 150 lbs 70 Est'd Date Of Delivery 05/11/2018 71 TREASURE Determined By ULTRASOUND 72 Mother's Ethnic Origin 73 Number Of Fetuses 1 74 Insulin Depend Diabetic NO 75 Repeat Specimen NO 76 HX Of Neural Tube Defects NO 77 Prev Down Synd NO 78 Donor Egg NOT GIVEN 79 Donor Age:Egg Retrieval NOT GIVEN 80 Cigarette Smoker NG 81 Ultrasound Date 05/11/2018 82 Fruit Or Nut Picker's Name JOSE MANUEL 83 NTQR Fruit Or Nut Picker Id# [id number] NTQR Location Id# [id number] NTQR Reading Phys Id# [id number] FMF Fruit Or Nut Picker Id# NOT GIVEN 87 Burna Rump Length 56.0 mm 88 Nuchal Translucency 1.6 mm 89 Nasal Bone NOT MEASURED 90 If Twins ONLY 1 FETUS 91 Twin B CRL NG mm 92 Twin B NT NG mm 93 Twin B Nasal Bone NG 94 PNL No 05/11/2018 [facility] Rubella Screen Immune Immune 95, 96 [place] [address] [phone] Hemoglobin A1c 5.6 % N 4.0-5.6 97 Hepatitis B Surface Ag Nonreactive Nonreactive 98 Syphillis Igg W/Reflex RPR Nonreactive Nonreactive 99 CBC With No 05/11/2018 [facility] White Blood 9.8 10^3/uL N 3.5-10[place]8 [place] [address] Count [phone] Red Blood Count 4.24 10^6/uL N 4.00-5.40 Hemoglobin 12.8 g/dL N 12.0-16.0 Hematocrit 37 % N 35-47 Mean Corpuscular Volume 87 fL N 80-97 Mean Corpuscular Hemoglobin 30 pg N 27-31 Mean Corpuscular HGB Conc 35 g/dL N 31-36 Red Cell Distribution Width 14 % N 10.5-15 Platelet Count 316 10^3/uL N 150-450 Mean Platelet Volume 8.1 um3 N 7.4-10.4 Type And Screen 05/11/2018 [facility] Patient [place] [address] [phone] Antibody Screen NEGATIVE HIV 1/2 AB 05/11/2018 [facility] HIV 1 2 Nonreactive Nonreactive [address] [place] [address] Antibody [phone] Lead 05/11/2018 [facility] Lead,Venous < 1.0 g/dL 0.0-4.9 101 [place] [address] , B [phone] Submitting Laboratory Phone [phone] 102 Toxoplasma Igg & 05/11/2018 [facility] Toxoplasma IgG [place] [address] Antibody [phone] Toxoplasma IgG Antibody Index <3 IU/mL 103 Toxoplasma IgM Antibody Negative Negative 104 Cystic Fibrosis 05/11/2018 [facility] Cystic [place] [address] Specimen Blood [phone] Cystic Fibrosis Method See Comment 105 Cystic Fibrosis Result Summary NEGATIVE Cystic Fibrosis Result See Comment 106 Cystic Fibrosis Interpretation See Comment 107 Cystic Fibrosis Released By See Comment 108 Laboratory test 05/11/2018 [facility] Miscellaneous Test See Comment [address] [place] [address] [phone] Urine Culture And 04/30/2018 [facility] Urine Culture SEE RESULT [address] [place] [address] BELOW [phone] 1 A POSITIVE result indicates probable membrane rupture. 2 Urine Source: Clean Catch 3 [id number] SEE RESULT BELOW Name: BRIANFLORINDASANTIAGO Antoine : [address]: Dimple Brown [facility] Acct: [id number] Unit: [id number] AGE: 23 Location: [facility] Re10/23/18 SEX: F Status: REG REF SPEC: [id number] SHANIA: 10/23/[address]: Dimple RAYGOZA REQ: [id number] RECD: 10/23/18 STATUS: COMP _ SOURCE: CER/VAG/RE SPDESC: ORDERED: Grp B Strp Scrn COMMENTS: [id number] QUERIES: Is patient penicillin allergic and/or sensitivities needed? Y Procedure Result Reported Site Group B Strep Culture Screen Final 10/25/18- 1129 ML Group B Strep Screen Negative * ML - Main Lab . END OF REPORT DEPARTMENT OF PATHOLOGY, [address] [place] [address] Matthew Powers M.D. Director [facility] # [id number] 5 A NEGATIVE results indicates there is no evidence of membrane rupture. 6 [id number] 7 Because ethnic data is not always readily available, this report includes an eGFR for both -Americans and non- Americans. The National Kidney Disease Education Program (NKDEP) does not endorse the use of the MDRD equation for patients that are not between the ages of 18 and 70, are , have extremes of body size, muscle mass, or nutritional status, or are non- or non-. According to the National Kidney Foundation, irrespective of diagnosis, the stage of the disease is based on the level of kidney function: Stage Description GFR(mL/min/1.73 m(2)) 1 Kidney damage with normal or decreased GFR 90 2 Kidney damage with mild decrease in GFR 60-89 3 Moderate decrease in GFR 30-59 4 Severe decrease in GFR 15-29 5 Kidney failure <15 (or dialysis) 8 [id number] 9 Test Performed by: [address] [address] 10 GLU Fast 83 Col: 09/11/18 0812 GLU 1HR 92 Col: 09/11/18 0921 GLU 2HR 120 Col: 09/11/18 1019 GLU 3HR 90 Col: 09/11/18 1120 GLU Interp Col: 09/11/18 0812 GTT normal ranges for obstetrics per the [employer] (ACOG).Based on 100 gm glucose load: Fasting <95 mg/dl 1hr <180 mg/dl 2hr <155 mg/dl 3hr <140 mg/dl 11 [id number] 12 [id number] 13 [id number] 14 [id number] 15 REFERENCE VALUE Cutoff: 500 16 REFERENCE VALUE Cutoff: 200 17 REFERENCE VALUE Cutoff: 100 18 REFERENCE VALUE Cutoff: 150 19 ADDITIONAL INFORMATION This report is intended for use in clinical monitoring or management of patients. It is not intended for use in employment-related testing. 20 REFERENCE VALUE Cutoff: 200 mg/L 21 Tylenol 3 22 Metabolite of codeine REFERENCE VALUE Cutoff: 100 23 Avinza, Rupal, MS Contin; Also a minor metabolite (10%) of codeine and can be seen in low concentrations (<2,000 ng/mL) with poppy seed ingestion. 24 Metabolite of morphine REFERENCE VALUE Cutoff: 100 25 Metabolite of heroin 26 Lortab, [place], Vicodin; Also a very minor metabolite of codeine and impurity (<1%) of oxycodone. 27 Metabolite of hydrocodone 28 Metabolite of hydrocodone 29 Dilaudid, Exalgo; Also a metabolite of hydrocodone and a minor (<5%) metabolite of morphine. 30 Metabolite of hydromorphone REFERENCE VALUE Cutoff: 100 31 Endocet, Percocet, Oxycontin 32 Metabolite of oxycodone 33 Numorphan, Opana; Also a metabolite of oxycodone. 34 Metabolite of oxymorphone REFERENCE VALUE Cutoff: 100 35 Metabolite of oxymorphone 36 Actiq, Duragesic, Fentora 37 Metabolite of fentanyl 38 Demerol 39 Metabolite of meperidine 40 Narcan 41 Metabolite of naloxone REFERENCE VALUE Cutoff: 100 42 Dolophine 43 Metabolite of methadone 44 Darvon, Darvocet 45 Metabolite of propoxyphene 46 Tradol, Ultram, Ultracet 47 Metabolite of tramadol 48 Nucynta 49 Metabolite of tapentadol 50 Metabolite of tapentadol REFERENCE VALUE Cutoff: 100 51 Buprenex, Suboxone 52 Metabolite of buprenorphine 53 Metabolite of buprenorphine 54 No opioids were detected. The absence of expected drug(s) and/or drug metabolite(s) may indicate non-compliance, altered pharmacokinetics, inappropriate timing of specimen collection relative to drug administration, diluted/adulterated urine, or limitations of testing. ADDITIONAL INFORMATION This test was developed and its performance characteristics determined by [facility] in a manner consistent with CLIA requirements. This test has not been cleared or approved by the U.S. Food and Drug Administration. Test Performed by: [facility] [address] [place] [address] 55 SCREEN NEGATIVE FOR OPEN NTD, DOWN SYNDROME AND TRISOMY 18. NT WAS USED IN THE RISK CALCULATIONS. 56 Burna rump length (CRL) was used to calculate gestational age. TREASURE, if provided, was not used for gestational age dating. 57 Reference Range: <2.50 IDD <1.90 TWINS <4.00 TWINS IDD <3.50 TRIPLETS <4.50 58 This test was performed using a kit that has not been cleared or approved by the FDA. The analytical performance characteristics of this test have been determined by [facility]. This test should not be used for diagnosis without confirmation by other medically established means. 59 The Sequential Integrated Screen combines RAFIQ-A and hCG with or without a nuchal translucency measurement in the first trimester with AFP, unconjugated estriol, intact hCG and Inhibin A in the second trimester. This provides a useful screening test for detection of open neural tube defects, Down syndrome and Trisomy 18. It should be noted that normal results can never guarantee the of a normal baby and that 2 to 3 percent of newborns have some type of physical or mental defect, many of which are undetectable through any known diagnostic technique. Interpretation reviewed by: Kaur Love, Ph.D., [facility]. 60 For additional information, please refer to http://[email or web address]/faq/[email or web address] (This link is provided for informational/educational purposes only.) This is a screening test, not a diagnostic test. This risk assessment is based on demographic data provided by the ordering physician. Please notify the laboratory promptly if any data are incorrect. It has been observed that patients who smoke cigarettes during may have a slightly increased risk of having a false positive YADY screen for Down Syndrome or trisomy 18. If you have questions concerning this report: For clinical consultation, call ; For technical questions, call ext [phone]; For recalculations, fax to [phone]. 61 This patient's risk does not exceed the first trimester cut-off for Down syndrome or trisomy 18. The integrated screen calculation is awaiting the second trimester sample. NT WAS USED IN THE RISK CALCULATIONS. Thank you for submitting this patient's Part 1 specimen. These first trimester values will be incorporated with the second trimester values as part of the integrated testing process. Please submit the Part 2 specimen between 06/01/2018-07/26/2018 (15.0 and 22.9 weeks gestation) with 06/01/2018-06/14/2018 (15.0 - 16.9 weeks gestation) being optimal. When submitting Part 2, please include the following Specimen # from Part 1: [id number] 62 Burna rump length (CRL) was used to calculate gestational age. TREASURE, if provided, was not used for gestational age dating. 63 This test was performed using a kit that has not been cleared or approved by the FDA. The analytical performance characteristics of this test have been determined by [facility]. This test should not be used for diagnosis without confirmation by other medically established means. 64 Interpretation reviewed by: Kaur Love, Ph.D., [facility]. For additional information, please refer to [email or web address]/faq/[email or web address] (This link is being provided for informational/educational purposes only.) This is a screening test, not a diagnostic test. This risk assessment is based on demographic data provided by the ordering physician. Please notify the laboratory promptly if any data are incorrect. It has been observed that patients who smoke cigarettes during may have a slightly increased risk of having a false positive YADY screen for Down Syndrome or trisomy 18 If you have questions concerning this report: For clinical consultation, call ; For technical questions, call ext [phone]; For recalculations, fax to [phone]. 65 LISA HERRERA For additional information, please refer to [email or web address]://[email or web address]/[email or web address] (This link is being provided for informational/educational purposes only.) This is a screening test, not a diagnostic test. This risk assessment is based on demographic data provided by the ordering physician. Please notify the laboratory promptly if any data are incorrect. It has been observed that patients who smoke cigarettes during may have a slightly increased risk of having a false positive YADY screen for Down Syndrome or trisomy 18 If you have questions concerning this report: For clinical consultation, call ; For technical questions, call ext [phone]; For recalculations, fax to [phone]. 66 For additional information, please refer to http://[employer]/faq/[email or web address] (This link is being provided for informational/educational purposes only.) This is a screening test, not a diagnostic test. This risk assessment is based on demographic data provided by the ordering physician. Please notify the laboratory promptly if any data are incorrect. It has been observed that patients who smoke cigarettes during may have a slightly increased risk of having a false positive YADY screen for Down Syndrome or trisomy 18 If you have questions concerning this report: For clinical consultation, call ; For technical questions, call ext [phone]; For recalculations, fax to [phone]. 67 For additional information, please refer to http://[employer]/faq/[email or web address] (This link is being provided for informational/educational purposes only.) This is a screening test, not a diagnostic test. This risk assessment is based on demographic data provided by the ordering physician. Please notify the laboratory promptly if any data are incorrect. It has been observed that patients who smoke cigarettes during may have a slightly increased risk of having a false positive YADY screen for Down Syndrome or trisomy 18 If you have questions concerning this report: For clinical consultation, call ; For technical questions, call ext [phone]; For recalculations, fax to [phone]. 68 For additional information, please refer to [email or web address]://[email or web address]/faq/[email or web address] (This link is being provided for informational/educational purposes only.) This is a screening test, not a diagnostic test. This risk assessment is based on demographic data provided by the ordering physician. Please notify the laboratory promptly if any data are incorrect. It has been observed that patients who smoke cigarettes during may have a slightly increased risk of having a false positive YADY screen for Down Syndrome or trisomy 18 If you have questions concerning this report: For clinical consultation, call ; For technical questions, call ext [phone]; For recalculations, fax to [phone]. 69 For additional information, please refer to http://[employer]/faq/[email or web address] (This link is being provided for informational/educational purposes only.) This is a screening test, not a diagnostic test. This risk assessment is based on demographic data provided by the ordering physician. Please notify the laboratory promptly if any data are incorrect. It has been observed that patients who smoke cigarettes during may have a slightly increased risk of having a false positive YADY screen for Down Syndrome or trisomy 18 If you have questions concerning this report: For clinical consultation, call ; For technical questions, call ext [phone]; For recalculations, fax to [phone]. 70 For additional information, please refer to [email or web address]://[email or web address]/[email or web address] (This link is being provided for informational/educational purposes only.) This is a screening test, not a diagnostic test. This risk assessment is based on demographic data provided by the ordering physician. Please notify the laboratory promptly if any data are incorrect. It has been observed that patients who smoke cigarettes during may have a slightly increased risk of having a false positive YADY screen for Down Syndrome or trisomy 18 If you have questions concerning this report: For clinical consultation, call ; For technical questions, call ext [phone]; For recalculations, fax to [phone]. 71 For additional information, please refer to [email or web address]://[email or web address]/[email or web address] (This link is being provided for informational/educational purposes only.) This is a screening test, not a diagnostic test. This risk assessment is based on demographic data provided by the ordering physician. Please notify the laboratory promptly if any data are incorrect. It has been observed that patients who smoke cigarettes during may have a slightly increased risk of having a false positive YADY screen for Down Syndrome or trisomy 18 If you have questions concerning this report: For clinical consultation, call ; For technical questions, call ext [phone]; For recalculations, fax to [phone]. 72 For additional information, please refer to http://[employer]/faq/[email or web address] (This link is being provided for informational/educational purposes only.) This is a screening test, not a diagnostic test. This risk assessment is based on demographic data provided by the ordering physician. Please notify the laboratory promptly if any data are incorrect. It has been observed that patients who smoke cigarettes during may have a slightly increased risk of having a false positive YADY screen for Down Syndrome or trisomy 18 If you have questions concerning this report: For clinical consultation, call ; For technical questions, call ext [phone]; For recalculations, fax to [phone]. 73 For additional information, please refer to http://[email or web address]/faq/[email or web address] (This link is being provided for informational/educational purposes only.) This is a screening test, not a diagnostic test. This risk assessment is based on demographic data provided by the ordering physician. Please notify the laboratory promptly if any data are incorrect. It has been observed that patients who smoke cigarettes during may have a slightly increased risk of having a false positive YADY screen for Down Syndrome or trisomy 18 If you have questions concerning this report: For clinical consultation, call ; For technical questions, call ext [phone]; For recalculations, fax to [phone]. 74 For additional information, please refer to http://[email or web address]/[email or web address] (This link is being provided for informational/educational purposes only.) This is a screening test, not a diagnostic test. This risk assessment is based on demographic data provided by the ordering physician. Please notify the laboratory promptly if any data are incorrect. It has been observed that patients who smoke cigarettes during may have a slightly increased risk of having a false positive YADY screen for Down Syndrome or trisomy 18 If you have questions concerning this report: For clinical consultation, call ; For technical questions, call ext [phone]; For recalculations, fax to [phone]. 75 For additional information, please refer to http://[employer]/faq/[email or web address] (This link is being provided for informational/educational purposes only.) This is a screening test, not a diagnostic test. This risk assessment is based on demographic data provided by the ordering physician. Please notify the laboratory promptly if any data are incorrect. It has been observed that patients who smoke cigarettes during may have a slightly increased risk of having a false positive YADY screen for Down Syndrome or trisomy 18 If you have questions concerning this report: For clinical consultation, call ; For technical questions, call ext [phone]; For recalculations, fax to [phone]. 76 For additional information, please refer to http://[email or web address]/[email or web address] (This link is being provided for informational/educational purposes only.) This is a screening test, not a diagnostic test. This risk assessment is based on demographic data provided by the ordering physician. Please notify the laboratory promptly if any data are incorrect. It has been observed that patients who smoke cigarettes during may have a slightly increased risk of having a false positive YADY screen for Down Syndrome or trisomy 18 If you have questions concerning this report: For clinical consultation, call ; For technical questions, call ext [phone]; For recalculations, fax to [phone]. 77 For additional information, please refer to http://[email or web address]/[email or web address] (This link is being provided for informational/educational purposes only.) This is a screening test, not a diagnostic test. This risk assessment is based on demographic data provided by the ordering physician. Please notify the laboratory promptly if any data are incorrect. It has been observed that patients who smoke cigarettes during may have a slightly increased risk of having a false positive YADY screen for Down Syndrome or trisomy 18 If you have questions concerning this report: For clinical consultation, call ; For technical questions, call ext [phone]; For recalculations, fax to [phone]. 78 For additional information, please refer to http://[employer]/faq/[email or web address] (This link is being provided for informational/educational purposes only.) This is a screening test, not a diagnostic test. This risk assessment is based on demographic data provided by the ordering physician. Please notify the laboratory promptly if any data are incorrect. It has been observed that patients who smoke cigarettes during may have a slightly increased risk of having a false positive YADY screen for Down Syndrome or trisomy 18 If you have questions concerning this report: For clinical consultation, call ; For technical questions, call ext [phone]; For recalculations, fax to [phone]. 79 For additional information, please refer to http://[employer]/faq/[email or web address] (This link is being provided for informational/educational purposes only.) This is a screening test, not a diagnostic test. This risk assessment is based on demographic data provided by the ordering physician. Please notify the laboratory promptly if any data are incorrect. It has been observed that patients who smoke cigarettes during may have a slightly increased risk of having a false positive YADY screen for Down Syndrome or trisomy 18 If you have questions concerning this report: For clinical consultation, call ; For technical questions, call ext [phone]; For recalculations, fax to [phone]. 80 For additional information, please refer to http://[email or web address]/[email or web address] (This link is being provided for informational/educational purposes only.) This is a screening test, not a diagnostic test. This risk assessment is based on demographic data provided by the ordering physician. Please notify the laboratory promptly if any data are incorrect. It has been observed that patients who smoke cigarettes during may have a slightly increased risk of having a false positive YADY screen for Down Syndrome or trisomy 18 If you have questions concerning this report: For clinical consultation, call ; For technical questions, call ext [phone]; For recalculations, fax to [phone]. 81 For additional information, please refer to http://[employer]/faq/[email or web address] (This link is being provided for informational/educational purposes only.) This is a screening test, not a diagnostic test. This risk assessment is based on demographic data provided by the ordering physician. Please notify the laboratory promptly if any data are incorrect. It has been observed that patients who smoke cigarettes during may have a slightly increased risk of having a false positive YADY screen for Down Syndrome or trisomy 18 If you have questions concerning this report: For clinical consultation, call ; For technical questions, call ext [phone]; For recalculations, fax to [phone]. 82 For additional information, please refer to http://[employer]/faq/[email or web address] (This link is being provided for informational/educational purposes only.) This is a screening test, not a diagnostic test. This risk assessment is based on demographic data provided by the ordering physician. Please notify the laboratory promptly if any data are incorrect. It has been observed that patients who smoke cigarettes during may have a slightly increased risk of having a false positive YADY screen for Down Syndrome or trisomy 18 If you have questions concerning this report: For clinical consultation, call ; For technical questions, call ext [phone]; For recalculations, fax to [phone]. 83 For additional information, please refer to http://[email or web address]/faq/[email or web address] (This link is being provided for informational/educational purposes only.) This is a screening test, not a diagnostic test. This risk assessment is based on demographic data provided by the ordering physician. Please notify the laboratory promptly if any data are incorrect. It has been observed that patients who smoke cigarettes during may have a slightly increased risk of having a false positive YADY screen for Down Syndrome or trisomy 18 If you have questions concerning this report: For clinical consultation, call ; For technical questions, call ext [phone]; For recalculations, fax to [phone]. 84 For additional information, please refer to http://[employer].[email or web address]/faq/[email or web address] (This link is being provided for informational/educational purposes only.) This is a screening test, not a diagnostic test. This risk assessment is based on demographic data provided by the ordering physician. Please notify the laboratory promptly if any data are incorrect. It has been observed that patients who smoke cigarettes during may have a slightly increased risk of having a false positive YADY screen for Down Syndrome or trisomy 18 If you have questions concerning this report: For clinical consultation, call ; For technical questions, call ext [phone]; For recalculations, fax to [phone]. 85 For additional information, please refer to http://[employer]/faq/[email or web address] (This link is being provided for informational/educational purposes only.) This is a screening test, not a diagnostic test. This risk assessment is based on demographic data provided by the ordering physician. Please notify the laboratory promptly if any data are incorrect. It has been observed that patients who smoke cigarettes during may have a slightly increased risk of having a false positive YADY screen for Down Syndrome or trisomy 18 If you have questions concerning this report: For clinical consultation, call ; For technical questions, call ext [phone]; For recalculations, fax to [phone]. 86 For additional information, please refer to http://[email or web address]/faq/[email or web address] (This link is being provided for informational/educational purposes only.) This is a screening test, not a diagnostic test. This risk assessment is based on demographic data provided by the ordering physician. Please notify the laboratory promptly if any data are incorrect. It has been observed that patients who smoke cigarettes during may have a slightly increased risk of having a false positive YADY screen for Down Syndrome or trisomy 18 If you have questions concerning this report: For clinical consultation, call ; For technical questions, call ext [phone]; For recalculations, fax to [phone]. 87 For additional information, please refer to http://[email or web address]/[email or web address] (This link is being provided for informational/educational purposes only.) This is a screening test, not a diagnostic test. This risk assessment is based on demographic data provided by the ordering physician. Please notify the laboratory promptly if any data are incorrect. It has been observed that patients who smoke cigarettes during may have a slightly increased risk of having a false positive YADY screen for Down Syndrome or trisomy 18 If you have questions concerning this report: For clinical consultation, call ; For technical questions, call ext [phone]; For recalculations, fax to [phone]. 88 For additional information, please refer to http://[employer]/faq/[email or web address] (This link is being provided for informational/educational purposes only.) This is a screening test, not a diagnostic test. This risk assessment is based on demographic data provided by the ordering physician. Please notify the laboratory promptly if any data are incorrect. It has been observed that patients who smoke cigarettes during may have a slightly increased risk of having a false positive YADY screen for Down Syndrome or trisomy 18 If you have questions concerning this report: For clinical consultation, call ; For technical questions, call ext [phone]; For recalculations, fax to [phone]. 89 For additional information, please refer to http://[email or web address]/faq/[email or web address] (This link is being provided for informational/educational purposes only.) This is a screening test, not a diagnostic test. This risk assessment is based on demographic data provided by the ordering physician. Please notify the laboratory promptly if any data are incorrect. It has been observed that patients who smoke cigarettes during may have a slightly increased risk of having a false positive YADY screen for Down Syndrome or trisomy 18 If you have questions concerning this report: For clinical consultation, call ; For technical questions, call ext [phone]; For recalculations, fax to [phone]. 90 For additional information, please refer to http://[email or web address]/faq/[email or web address] (This link is being provided for informational/educational purposes only.) This is a screening test, not a diagnostic test. This risk assessment is based on demographic data provided by the ordering physician. Please notify the laboratory promptly if any data are incorrect. It has been observed that patients who smoke cigarettes during may have a slightly increased risk of having a false positive YADY screen for Down Syndrome or trisomy 18 If you have questions concerning this report: For clinical consultation, call ; For technical questions, call ext [phone]; For recalculations, fax to [phone]. 91 For additional information, please refer to http://[employer]/faq/[email or web address] (This link is being provided for informational/educational purposes only.) This is a screening test, not a diagnostic test. This risk assessment is based on demographic data provided by the ordering physician. Please notify the laboratory promptly if any data are incorrect. It has been observed that patients who smoke cigarettes during may have a slightly increased risk of having a false positive YADY screen for Down Syndrome or trisomy 18 If you have questions concerning this report: For clinical consultation, call ; For technical questions, call ext [phone]; For recalculations, fax to [phone]. 92 For additional information, please refer to http://[email or web address]/faq/[email or web address] (This link is being provided for informational/educational purposes only.) This is a screening test, not a diagnostic test. This risk assessment is based on demographic data provided by the ordering physician. Please notify the laboratory promptly if any data are incorrect. It has been observed that patients who smoke cigarettes during may have a slightly increased risk of having a false positive YADY screen for Down Syndrome or trisomy 18 If you have questions concerning this report: For clinical consultation, call ; For technical questions, call ext [phone]; For recalculations, fax to [phone]. 93 For additional information, please refer to http://[employer]/faq/[email or web address] (This link is being provided for informational/educational purposes only.) This is a screening test, not a diagnostic test. This risk assessment is based on demographic data provided by the ordering physician. Please notify the laboratory promptly if any data are incorrect. It has been observed that patients who smoke cigarettes during may have a slightly increased risk of having a false positive YADY screen for Down Syndrome or trisomy 18 If you have questions concerning this report: For clinical consultation, call ; For technical questions, call ext [phone]; For recalculations, fax to [phone]. 94 For additional information, please refer to [email or web address]://[email or web address]/[email or web address] (This link is being provided for informational/educational purposes only.) This is a screening test, not a diagnostic test. This risk assessment is based on demographic data provided by the ordering physician. Please notify the laboratory promptly if any data are incorrect. It has been observed that patients who smoke cigarettes during may have a slightly increased risk of having a false positive YADY screen for Down Syndrome or trisomy 18 If you have questions concerning this report: For clinical consultation, call ; For technical questions, call ext [phone]; For recalculations, fax to [phone]. 95 [id number] 97 Therapeutic target for the treatment of diabetes mellitus patients is <7% HBA1C, and in selective patients <6.0%. Please refer to [place] [employer] diabetic care guidelines for further information. 98 [id number] Warning: A positive result is not useful for establishing a diagnosis of syphilis. In most situations, such a result may reflect a prior treated infection; a negative result can exclude a diagnosis of syphilis except for incubating or early primary disease. 100 It is recognized that currently available assays for the detection of antibodies to HIV-1 and/or HIV-2 may not detect all infected individuals. HIV antibodies may be undetectable in some stages of the infection and in some clinical conditions. The performance of this assay has not been established for populations of infants or children. Assayed by Chemiluminescence Microparticle Immunoassay on the Siemens Advia Centaur CP. Values obtained with different methods or kits cannot be used interchangeably.The diagnostic specificity of the ADVIA Centaur 1/O/2 Enhanced assay in the low risk population was 99.90% (6052/6058) with a 95% confidence interval of 99.78 to 99.96%. 101 ADDITIONAL INFORMATION Testing performed by Inductively Coupled Plasma-Mass Spectrometry (ICP-MS). This test was developed and its performance characteristics determined by [facility] in a manner consistent with CLIA requirements. This test has not been cleared or approved by the U.S. Food and Drug Administration. 102 Test Performed by: [facility] [email or web address] [facility] [employer] [address] [place] [address] 103 REFERENCE VALUE <=9 IU/mL (Negative) 10-11 IU/mL (Equivocal) >=12 IU/mL (Positive) Test Performed by: [facility] [place] [address] 104 No IgM antibodies to T. gondii detected. Results may be negative up to 7 days following infection. 105 The multiplex PCR based assay utilizing the Tripleseat Array platform was used to detect 106 mutations, including the 23 mutations specified in the [employer] ([employer]) standards for population based carrier screening. The mutations are as follows: bevasK837, albylO766, G542X, G85E, R117H, L5763T (TGG>TGA), 621+1G>T, 711+1G>T, U5511K (C>A), E3784K (C>G), R334W, R347P, A455E, 1717-1G>A, R553X, R560T, G551D, 1898+1G>A, 2184delA, 2789+5G>A, 3120+1G>A, V2914X, 3659delC, 3849+10kbC>T, the deletion of exons 2-3, 296+2T>A, E60X, R75X, 394_395delTT, 405+1G>A, 406-1G>A, E92X, 444delA, 457TAT>G, R117C, Y122X, 574delA, 663delT, G178R, 711+5G>A, 712-1G>T, H199Y, P205S, L206W, 022eyp76, 935delA, 936delTA, qhizfY445, 1078delT, G330X, T338I, R347H, R352Q, Q359K, T360K, 1288insTA, S466X (C>A), S466X (C>G), G480C, Q493X, 1677delTA, C524X, S549N, S549R (T>G), Q552X, A559T, 1811+1.6kbA>G, 1812-1G>A, 1898+1G>T, 1898+1G>C, 1898+5G>T, P574H, 6010yil13, 2043delG, 5484cuq9>A, 7153way22mfe9, 2108delA, 2143delT, 2183_2184delAAinsG, 2184insA, R709X, K710X, 2307insA, R764X, Q890X, 2869insG, 3171delC, 2659tze1, I5679K, I4784K (TGG>TAG), O2040I (C>G), V1889N (C>A), X3539X, F9439B, I1309H, L2543X, 0433mkn4, W7112K, N8391L (TGG>TAG), 3791delC, H4203B, 3876delA, H6681Z, V7542S, 3905insT, and 4016dupT mutations are detected. Poly T determination and confirmatory testing of homozygous results are performed as reflex tests when appropriate. 106 RESULT: None of the listed mutations were detected. 107 Having excluded the listed mutations, this result decreases the likelihood but does not exclude the possibility that this individual is a carrier of or affected with cystic fibrosis (CF). The degree to which this result reduces the patient's risk depends on the ethnic background and family history of the patient. Because this information was not provided, we are unable to provide a revised risk assessment at this time. The risk that this individual is a carrier of another CF mutation is listed below. Ethnicity Risk (Detection rate, Carrier Freq) Northern (91%, 12/14) Mixed 134 (82%, 12/14) Southern 115 (79%, 12/14) Eastern 127 (77%, 12/19) Ashkenazi Adventist (97%, 12/14) Nepalese [place] (91%, 12/14) 1338 (81%, ) Kazakh 1251 (82%, ) Kazakh* 1194 (54%, ) *does not apply to individuals of Wol[place] ancestry These calculations are based on the mutation detection rates and population carrier frequencies noted in the chart and assume no family history of CF. Because there is little information available about the carrier frequency and mutation detection rates for individuals of other ethnicities, we are unable to provide a revised risk assessment for ethnicities other than those listed. If the patient has a family history of CF, contact our laboratory for a revised risk assessment. If there is a suspected diagnosis of CF, correlation between other laboratory tests and clinical history is recommended. Additional genetic testing strategies, such as full gene analysis of the CFTR gene (CFTRZ / CFTR Gene, Full Gene Analysis), should be considered for identifying mutations that are not detected by this assay. Contact the [facility] at for further discussion regarding this option. A genetic consultation may be of benefit. ADDITIONAL INFORMATION An online research opportunity called 1010data ([employer]), a project of [employer], is available for the recipient of this genetic test. This patient registry collects de-identified genetic and health information to advance the knowledge of genetic variants. [facility] is a collaborator of [email or web address]. This may not be applicable for all tests. Test results should be interpreted in the context of clinical findings, family history, and other laboratory data. Misinterpretation of results may occur if the information provided is inaccurate or incomplete. Rare polymorphisms exist that could lead to false-negative or false-positive results. If results obtained do not match the clinical findings, additional testing should be considered. Bone Marrow transplants from allogenic donors will interfere with testing. Call [facility] for instructions for testing patients who have received a bone marrow transplant. Multiple in-silico evaluation tools may have been used to assist in the interpretation of these results. Of note, the sensitivity and specificity of these tools for the determination of pathogenicity is currently unvalidated. This test was developed and its performance characteristics determined by [facility] in a manner consistent with CLIA requirements. This test has not been cleared or approved by the U.S. Food and Drug Administration. 108 RESULT: Ramos Pate M.D. 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 This interpretation assumes that this individual is not affected with SMA. Since a deletion in SMN1 was identified, genetic testing of at risk family members could be considered. If appropriate, genetic testing should be offered to this individual's reproductive partner to further clarify the risk of having a child affected with SMA. Disease severity is also associated with SMN2 copy number. A genetic consultation may be of benefit. ADDITIONAL INFORMATION Laboratory developed test (LDT) for SMN1 exon 7 and SMN2 exon 7 copy number by droplet digital PCR. Mutation nomenclature is based on the following GenBank Accession number(s) (build GRCh37 (hg19)): [id number]. See [email or web address] (Test ID SMNCS) for additional information about this test. CAUTIONS: CLINICAL CORRELATIONS Test results should be interpreted in context of clinical findings, family history, and other laboratory data. Misinterpretation of results may occur if the information provided is inaccurate or incomplete. If testing was performed because of a family history of Spinal Muscular Atrophy, it is often useful to first test an affected family member. TECHNICAL LIMITATIONS Point mutations are undetectable by this assay. Nor can the assay discriminate between two copies of SMN1 on the same chromosome versus two copies on separate chromosomes. Bone marrow transplants from allogenic donors will interfere with testing. Call [facility] for instructions for testing patients who have received a bone marrow transplant. TEST CLASSIFICATION This test was developed and its performance characteristics determined by [facility] in a manner consistent with CLIA requirements. This test has not been cleared or approved by the U.S. Food and Drug Administration. Specimen WB Whole Blood Released By See Comment RESULT: Ramos Pate M.D. Test Performed by: [address] [address] 110 SEE RESULT BELOW Name: SANTIAGO SIMMS : [address]: Chelle Hagan [facility] Acct: [id number] Unit: [id number] AGE: 22 Location: [facility] Re04/30/18 SEX: F Status: REG REF SPEC: [id number] SHANIA: 04/30/18-[address] [facility] [address]: Chelle Hagan [facility] REQ: [id number] RECD: 04/30/18-120 STATUS: COMP _ SOURCE: URINE SPDESC: ORDERED: Urine Culture Procedure Result Reported Site Urine Culture Final 05/01/18- 1309 ML No Growth (<1,000 CFU/mL) * ML - Main Lab . END OF REPORT DEPARTMENT OF PATHOLOGY, [address] [place] [address] Matthew Powers M.D. Director [facility] # [id number] Procedures Date Code Description Status 01/17/2019 44122 Insert Intrauterine Device Completed 11/06/2018 53920 Obstetric Care Routine Completed 10/30/2018 98820 Non-Stress Test Completed 10/17/2018 91722 Non-Stress Test Completed 09/24/2018 02595 Injection Intramuscular Or Subcutaneous Completed 08/21/2018 51484 Echography Uterus Limited Completed 07/09/2018 23509 Echography Uterus Complete Completed 05/11/2018 54954 Nuchal Translucency Ultrasound /First Gestation Completed 04/30/2018 03786 OB Ultrasound First Trimester Completed Encounters Type Date Location Provider Dx Diagnosis Office Visit 10/30/2018 Delivery Lisa Zimmer, O47.03 False labor before 8:06a LUIS ENRIQUE 37 completed weeks of gest, third tri Office Visit 10/17/2018 Delivery Chelle Hagan CNM O47.03 False labor before 7:46a 37 completed weeks of gest, third tri Office Visit 08/21/2018 [facility] Moreno Rodriguez, R10.11 Right upper 3:20p M.D. quadrant pain Plan of Treatment Future Appointment(s):02/18/2019 9:00 am - [place] CNM at [facility] - [place] [id number] Encounter for insertion of intrauterine contraceptive deviceComments:Return for string check, call for problems.
[2019-02-11 08:31] VITALS: BP 110/67
--- NOTE | 2019-02-11 08:35 | UC ---
Throat Pain/Nasal Husam HPI - HPI Summary HPI Summary: Patient presents to urgent care reporting sore throat progressive for 2 weeks. Patient with mild sinus congestion postnasal drip. Patient last night had a fever to 101.2 and 2 episodes of diarrhea. Nonbloody nonblack. Patient took Tylenol for her fever last night. Patient has a 3-month-old child at home who is healthy without any symptoms. Patient states approximately 3 weeks ago she had a sore throat. Patient was started on clindamycin for this visit presumed. the strep culture came back negative. Pt states she clinda x 3 days because diagnosed with C. Diff. .Patient's has recently been diagnosed with a relapse of C. difficile. Patient states he was concerned when she had diarrhea last night however she had a normal bowel movement this morning. Patient without any dysuria. Patient is breast-feeding although not exclusively. Patient without any rashes. No ear pain. Patient has not taken any decongestants. Patient's room where she sleeps is humidified. - History of Current Complaint Chief Complaint: UCGeneralIllness Stated Complaint: ST Time Seen by Provider: 02/11/19 08:30 Hx Obtained From: Patient Hx Last Menstrual Period: "about a month ago" ?: No Onset/Duration: Gradual Onset Severity: Moderate Pain Intensity: 3 Pain Scale Used: 0-10 Numeric - Allergies/Home Medications Allergies/Adverse Reactions: Allergies Allergy/AdvReac Type Severity Reaction Status Date / Time Penicillins Allergy Rash Verified 02/11/19 08:26 Home Medications: Home Medications Dm/PE/Acetaminophen/Doxylamine [Tylenol Cold Max Night Liquid] 1 dose PO Q4H PRN 02/11/19 [History Confirmed 02/11/19] Levonorgestrel (Iud) [Mirena IUD] 20 mcg IU ONCE 02/11/19 [History Confirmed ] PMH/Surg Hx/FS Hx/Imm Hx Previously Healthy: Yes Other History Of: Negative For: Anticoagulant Therapy - Surgical History Surgical History: None - Family History Known Family History: Positive: Non-Contributory Negative: Blood Disorder - Social History Alcohol Use: Rare Substance Use Type: None Smoking Status (MU): Never Smoked Tobacco Have You Smoked in the Last Year: No - Immunization History Most Recent Influenza Vaccination: 09/07/18 Most Recent Pneumonia Vaccination: never Review of Systems All Other Systems Reviewed And Are Negative: Yes Constitutional: Positive: Fever Skin: Positive: Negative Eyes: Positive: Negative ENT: Positive: Sore Throat, Nasal Discharge, Sinus Congestion. Negative: Ear Ache Respiratory: Positive: Negative Cardiovascular: Positive: Negative Gastrointestinal: Positive: Negative Genitourinary: Positive: Negative Motor: Positive: Negative Neurovascular: Positive: Negative Musculoskeletal: Positive: Negative Neurological: Positive: Negative Psychological: Positive: Negative Is Patient Immunocompromised?: No Physical Exam - Summary Physical Exam Summary: Vital Signs Reviewed: Yes A+Ox3, no distress Eyes: Conjunctiva Clear, CHASE. EOM intact and full ENT: Hearing grossly normal TM x 2 clear, trubinates boggy, + mild PND, mmoist , uvula midline, no exudate, no erythema Neck: Positive: Supple, no lymphadenopathy Respiratory: Positive: No respiratory distress, No accessory muscle use + CTA throughout no w/r Cardiovascular: RRR nl s1, s2 no m/r CBT <2 sec abd soft + BS nt/nd no guarding, no distension Musculoskeletal Exam: MODI x 4 without difficulty Strength Intact, ROM Intact Neurological: Positive: Alert, + sensation throughout Psychological: Positive: Normal Response To Family Skin: Positive: no rash, no ecchymosis Triage Information Reviewed: Yes Vital Signs: Initial Vital Signs Temp 98.1 F 02/11/19 08:24 Pulse 100 02/11/19 08:24 Resp 16 02/11/19 08:24 BP 110/67 02/11/19 08:24 Pulse Ox 100 02/11/19 08:24 Throat Pain/Nasal Course/Dx - Course Course Of Treatment: Patient presents to urgent care requesting a tested for strep as well as fluid. Patient was diagnosed with strep clinically prescribed 3 weeks ago. Patient was given clindamycin for which took 3 days. Patient stopped taking this when her culture was negative and her had a recurrence of his C. difficile. Patient states she continues a little sore throat. Patient does have postnasal drip. Patient without a cough. Last night patient had a fever as well as 2 episodes of diarrhea. Patient took Tylenol feel resolved. Patient with normal bowel movement this morning. Patient's concerned she might have C. difficile. Patient's concerned is a flu. Patient has a 3-month-old child at home. Patient is intermittently breast-feeding. On exam vital signs are stable. Patient has nasal congestion with postnasal drip. Without any exudate or erythema of the throat. Patient otherwise well-appearing and not concerning exam. Rapid strep and flu both negative. We'll send throat culture. Patient also reviewed secretion precautions. Right Flonase to her nose for congestion. Recommend reevaluated. Tylenol. Strict return precautions. Patient given order for stool to be tested for C. difficile if she has ongoing or recurrent diarrhea. Patient states she has a collection kit home. Patient comfortable in agreement with plan. - Differential Dx/Diagnosis Provider Diagnosis: Pharyngitis Discharge - Sign-Out/Discharge Documenting (check all that apply): Patient Departure All imaging exams completed and their final reports reviewed: No Studies - Discharge Plan Condition: Stable Disposition: HOME Prescriptions: Fluticasone NASAL SPRAY 50MCG* [Flonase NASAL SPRAY 50MCG*] 2 spray BOTH NARES DAILY #1 btl Patient Education Materials: Pharyngitis (ED) Referrals: Daljit Johnson MD [Primary Care Provider] - Additional Instructions: - Okay to alternate Tylenol 975mg every 6 hours for pain. Take with food. Do NOT take for more than 4-5 days - Okay to gargle and spit warm salt water every 4 hours as needed for pain - Stay well hydrated - frequent sips of cold fluids will be soothing to your throat (popsicles, jello, ice cream, ice water). Avoid excess caffeine until your symptoms have resolved. -Throat infections are spread by oral secretions - do not share eating or drinking utensils until you symptoms are resolved. Clean items that may get your secretions such as cell phones, ipads, computer mouse, television remotes. Once you start to feel better, change your toothbrush and your pillowcase. - your throat sample has been sent for additional testing. If you need a change in your treatment, you will receive a call from a care team provider - use nasal spray as prescribed - humidify the air in the room where you sleep - boil water, run a hot steam shower, vaporizer, cups of water by heat register - Okay to take over the counter cough and decongestant medication - Contact your doctor to arrange a follow-up appointment as needed - Billing Disposition and Condition Condition: STABLE Disposition: Home
[2019-02-11 08:51] LABS: Influenza A Molecular NEGATIVE (Negative); Influenza B Molecular NEGATIVE (Negative)
--- NOTE | 2019-02-11 15:30 | ED ---
Progress - Progress Note Progress Note: Case DW Nuria Cotton MD who saw the patient this morning. The stool cdiff came back positive. The patient is intermittently breast feeding per Dr Cotton; It is recommended the patient pump and dump and that she be prescribed flagyl oral course for ten days and follow up with ELLYN Servin in [place]. Script for Flagyl Sent. Course/Dx - Diagnoses Provider Diagnoses: Pharyngitis Discharge - Sign-Out/Discharge Documenting (check all that apply): Patient Departure All imaging exams completed and their final reports reviewed: No Studies - Discharge Plan Condition: Stable Disposition: HOME Prescriptions: Fluticasone NASAL SPRAY 50MCG* [Flonase NASAL SPRAY 50MCG*] 2 spray BOTH NARES DAILY #1 btl metroNIDAZOLE [Flagyl 500 MG TAB] 500 mg PO TID #30 tab Patient Education Materials: Pharyngitis (ED) Referrals: Daljit Johnson MD [Primary Care Provider] - Additional Instructions: - Okay to alternate Tylenol 975mg every 6 hours for pain. Take with food. Do NOT take for more than 4-5 days - Okay to gargle and spit warm salt water every 4 hours as needed for pain - Stay well hydrated - frequent sips of cold fluids will be soothing to your throat (popsicles, jello, ice cream, ice water). Avoid excess caffeine until your symptoms have resolved. -Throat infections are spread by oral secretions - do not share eating or drinking utensils until you symptoms are resolved. Clean items that may get your secretions such as cell phones, ipads, computer mouse, television remotes. Once you start to feel better, change your toothbrush and your pillowcase. - your throat sample has been sent for additional testing. If you need a change in your treatment, you will receive a call from a care team provider - use nasal spray as prescribed - humidify the air in the room where you sleep - boil water, run a hot steam shower, vaporizer, cups of water by heat register - Okay to take over the counter cough and decongestant medication - Contact your doctor to arrange a follow-up appointment as needed - Billing Disposition and Condition Condition: STABLE Disposition: Home
== END 2019-02-11 09:03 | disposition home or self-care (01) ==
LOC: UCCORT 08:12
DX: J02.9 Acute pharyngitis, unspecified (principal); R09.81 Nasal congestion; R19.7 Diarrhea, unspecified; Z88.0 Allergy status to penicillin
CPT/HCPCS: 87045; 87046; 87070; 87077; 87493; 87651; 87899; 99212; G0463

== ENCOUNTER 2019-02-11 23:48 | Emergency (ER) | payer OTHER ==
[2019-02-12] MEDS ORDERED: Vancomycin CAP* 125 MG CAP PO ONE (00:27)
--- NOTE | 2019-02-12 00:29 | ED ---
GI/ HPI - HPI Summary HPI Summary: 23-year-old female presents results for C. difficile culture. States her is on third course of antibiotics for C. difficile. She started developing diarrhea couple days ago. David submitted a stool sample to urgent care today. She denies any fevers. She admits to occasional bowel pain that is relieved with bowel movement. She is concerned that her daughter who is 3 months old was going to get sick. Denies any nausea vomiting. Has no medical conditions. - History of Current Complaint Chief Complaint: EDGeneral Time Seen by Provider: 02/12/19 00:04 Stated Complaint: IM COMING IN FOR POSSIBLE C DIFF PER PT Hx Last Menstrual Period: "about a month ago" Pain Intensity: 3 - Allergy/Home Medications Allergies/Adverse Reactions: Allergies Allergy/AdvReac Type Severity Reaction Status Date / Time Penicillins Allergy Rash Verified 02/11/19 08:26 PMH/Surg Hx/FS Hx/Imm Hx Endocrine/Hematology History: Denies: Hx Anticoagulant Therapy Cardiovascular History: Denies: Hx Myocardial Infarction Psychiatric History: Reports: Hx Anxiety, Hx Depression - stopped meds for Infectious Disease History: No Infectious Disease History: Denies: Traveled Outside the [place] in Last 30 Days - Family History Known Family History: Positive: Non-Contributory Negative: Blood Disorder - Social History Alcohol Use: Rare Hx Substance Use: No Substance Use Type: Reports: None Hx Tobacco Use: No Smoking Status (MU): Never Smoked Tobacco Have You Smoked in the Last Year: No Review of Systems Negative: Fever Negative: Chest Pain Negative: Shortness Of Breath Positive: Abdominal Pain, Diarrhea. Negative: Vomiting, Nausea All Other Systems Reviewed And Are Negative: Yes Physical Exam Triage Information Reviewed: Yes Vital Signs On Initial Exam: Initial Vitals Temp Pulse Resp BP Pulse Ox 97.9 F 100 16 127/88 98 02/11/19 23:49 02/11/19 23:49 02/11/19 23:49 02/11/19 23:49 02/11/19 23:49 Vital Signs Reviewed: Yes Appearance: Positive: Well-Appearing Skin: Positive: Warm, Dry Head/Face: Positive: Normal Head/Face Inspection Eyes: Positive: Normal, Conjunctiva Clear ENT: Positive: Pharynx normal Respiratory/Lung Sounds: Positive: Clear to Auscultation, Breath Sounds Present Cardiovascular: Positive: Normal, RRR Abdomen Description: Positive: Nontender, Soft Bowel Sounds: Positive: Present Musculoskeletal: Positive: Normal Neurological: Positive: Normal Diagnostics - Vital Signs Vital Signs Temp Pulse Resp BP Pulse Ox 02/11/19 23:49 97.9 F 100 16 127/88 98 - Laboratory Lab Statement: Any lab studies that have been ordered have been reviewed, and results considered in the medical decision making process. GIGU Course/Dx - Course Course Of Treatment: 23-year-old female presents results for C. difficile culture. States her is on third course of antibiotics for C. difficile. She started developing diarrhea couple days ago. David submitted a stool sample to urgent care today. She denies any fevers. She admits to occasional bowel pain that is relieved with bowel movement. She is concerned that her daughter who is 3 months old was going to get sick. Denies any nausea vomiting. Has no medical conditions. On exam nontender abdomen. C. difficile is positive. We'll treat with vancomycin. Told if any develop any signs of allergic reaction to stop medication. We'll give referral to Dr. dawkins. Patient understand and agrees plan. - Diagnoses Differential Diagnoses - Female: Diarrhea, Gastroenteritis (Viral), Other - c diff Provider Diagnoses: C. difficile diarrhea Discharge - Sign-Out/Discharge Documenting (check all that apply): Patient Departure Patient Received Moderate/Deep Sedation with Procedure: No - Discharge Plan Condition: Good Disposition: HOME Prescriptions: Vancomycin CAP* 125 mg PO QID #39 cap Patient Education Materials: C Diff (Clostridium Difficile) Infection (ED) Referrals: Daljit Johnson MD [Primary Care Provider] - Awais CURIEL,Adeel Su [Medical Doctor] - Additional Instructions: take vancomycin four times a day for 10 days Follow up with dr dawkins if no improvement Wash hands Return to ED if develop rash or any new or worsening symptoms - Billing Disposition and Condition Condition: GOOD Disposition: Home
[2019-02-12 01:05] VITALS: BP 117/71
== END 2019-02-12 01:13 | disposition home or self-care (01) ==
LOC: ED 23:48
DX: A04.72 Enterocolitis due to Clostridium difficile, not specified as recurrent (principal); Z88.0 Allergy status to penicillin
CPT/HCPCS: 99282; A9270-GY

== ENCOUNTER 2019-06-04 16:12 | Emergency (ER) | payer OTHER ==
[2019-06-04 16:24] VITALS: BP 125/72
--- NOTE | 2019-06-04 17:04 | UC ---
Lower Extremity/Ankle HPI - HPI Summary HPI Summary: 23-year-old woman comes in with a chief complaint of left ankle pain. Last evening she was running and she twisted her ankle and felt a crack. Had immediate pain. Has swelling circumferentially on the ankle. She has been able to ambulate with pain. She is taking some ibuprofen which does help the pain. Denies any foot pain. - History of Current Complaint Chief Complaint: UCLowerExtremity Stated Complaint: LEFT ANKLE INJURY Time Seen by Provider: 06/04/19 16:25 Hx Last Menstrual Period: IUD Pain Intensity: 6 - Allergies/Home Medications Allergies/Adverse Reactions: Allergies Allergy/AdvReac Type Severity Reaction Status Date / Time Penicillins Allergy Rash Verified 06/04/19 16:19 Home Medications: Home Medications Anxiety/Depression Med 1 tab DAILY 06/04/19 [History Confirmed 06/04/19] Levonorgestrel (Iud) [Mirena IUD] 1 implant ONCE 06/04/19 [History Confirmed ] PMH/Surg Hx/FS Hx/Imm Hx Previously Healthy: Yes Other History Of: Negative For: Anticoagulant Therapy - Surgical History Surgical History: Yes Surgery Procedure, Year, and Place: Appendectomy - Family History Known Family History: Positive: Non-Contributory Negative: Blood Disorder - Social History Alcohol Use: Weekly Alcohol Amount: 1-2/WEEK Substance Use Type: None Smoking Status (MU): Never Smoked Tobacco Have You Smoked in the Last Year: No - Immunization History Most Recent Influenza Vaccination: 09/07/18 Most Recent Pneumonia Vaccination: never Review of Systems All Other Systems Reviewed And Are Negative: Yes Constitutional: Positive: Negative Skin: Positive: Negative Eyes: Positive: Negative ENT: Positive: Negative Respiratory: Positive: Negative Cardiovascular: Positive: Negative Gastrointestinal: Positive: Negative Motor: Positive: Negative Neurovascular: Positive: Negative Musculoskeletal: Positive: Other: - SEE HPI Neurological: Positive: Negative Psychological: Positive: Negative Is Patient Immunocompromised?: No Physical Exam Triage Information Reviewed: Yes Appearance: Well-Appearing, No Pain Distress, Well-Nourished Vital Signs: Initial Vital Signs Temp 98.5 F 06/04/19 16:20 Pulse 106 06/04/19 16:20 Resp 16 06/04/19 16:20 BP 125/72 06/04/19 16:20 Pulse Ox 98 06/04/19 16:20 Vital Signs Reviewed: Yes Eye Exam: Normal Eyes: Positive: Conjunctiva Clear Neck: Positive: Supple Respiratory: Positive: No respiratory distress Musculoskeletal: Positive: Other: - Left ankle has swelling circumferentially. Achilles tendon is nontender and intact. Patient's tender over the medial and lateral malleoli. Normal capillary refill no sensation deficit foot is nontender to palpation. Pain with range of motion of the ankle. Neurological: Positive: Alert Psychological: Positive: Age Appropriate Behavior Skin Exam: Normal Lower Extremity Course/Dx - Course Course Of Treatment: Order Information: ANKLE LEFT 3+VWS Accession Number: [id number] CPT: 68491 INDICATION: Left ankle injury. TECHNIQUE: 3 views of the left ankle were obtained. FINDINGS: There is soft tissue swelling about the lateral malleolus. The bone mineralization is within normal limits. No acute fracture is identified. The ankle mortise is congruent. Anatomic alignment is maintained. IMPRESSION: 1. Soft tissue swelling about the lateral malleolus. 2. No fracture or traumatic malalignment of the left ankle. <Electronically signed by Steve Garibay MD in [facility]> 06/04/19 7650 I discussed the x-rays with the patient. No fracture seen. Patient was placed in a Aleksandr wrap and gel splint by nursing. Neurovascularly intact after placement. Patient declined crutches. Plan is ice elevation rests and anti- inflammatories and follow-up with sports medicine if not completely improved. - Differential Dx/Diagnosis Provider Diagnosis: Left ankle sprain Discharge - Sign-Out/Discharge Documenting (check all that apply): Patient Departure All imaging exams completed and their final reports reviewed: Yes - Discharge Plan Condition: Stable Disposition: HOME Patient Education Materials: Ankle Sprain (ED) Referrals: Daljit Johnson MD [Primary Care Provider] - [facility] [Provider Group] Additional Instructions: FOLLOW UP WITH SPORTS MEDICINE IF NOT COMPLETELY IMPROVED. GET REEVALUATED SOONER IF WORSE OR ANY QUESTIONS OR CONCERNS. - Billing Disposition and Condition Condition: STABLE Disposition: Home
== END 2019-06-04 17:14 | disposition home or self-care (01) ==
LOC: UCCORT 16:12
DX: S93.402A Sprain of unspecified ligament of left ankle, initial encounter (principal); X50.0XXA Overexertion from strenuous movement or load, initial encounter; Y93.02 Activity, running; Y92.9 Unspecified place or not applicable; F41.8 Other specified anxiety disorders
CPT/HCPCS: 99212; G0463

== ENCOUNTER 2019-12-06 10:58 | Emergency (ER) | payer OTHER ==
[2019-12-06 11:18] VITALS: BP 132/74
--- NOTE | 2019-12-06 11:41 | UC ---
Throat Pain/Nasal Husam HPI - HPI Summary HPI Summary: 24-year-old female history of asthma presents with one-week history of nasal congestion, sore throat, chest congestion, and cough. States today noticed some right eye redness and drainage. States had some mild wheezing at the onset of symptoms but has not had to use her rescue inhaler in the past few days. Her [id number] son has been sick with similar symptoms for the past 2 weeks and was diagnosed with acute bacterial rhinosinusitis and placed on an antibiotic. Denies fever, chills, ear pain, chest pain, or shortness of breath. - History of Current Complaint Chief Complaint: UCRespiratory Stated Complaint: EAR ISSUE Time Seen by Provider: 12/06/19 11:14 Hx Obtained From: Patient Hx Last Menstrual Period: IUD in place Pain Intensity: 0 - Allergies/Home Medications Allergies/Adverse Reactions: Allergies Allergy/AdvReac Type Severity Reaction Status Date / Time Penicillins Allergy Rash Verified 12/06/19 11:17 Home Medications: Home Medications Albuterol HFA INHALER* [Ventolin HFA Inhaler*] 2 puff INH Q4H PRN 12/06/19 [ History Confirmed 12/06/19] Escitalopram * [Lexapro 10 mg (NF)] 15 mg PO DAILY 12/06/19 [History Confirmed 12/06/19] PMH/Surg Hx/FS Hx/Imm Hx Respiratory History: Asthma Psychological History: Depression Other History Of: Negative For: Anticoagulant Therapy - Surgical History Surgical History: Yes Surgery Procedure, Year, and Place: Appendectomy - Family History Known Family History: Positive: Non-Contributory - Social History Occupation: Employed Full-time Lives: With Family Alcohol Use: Weekly Alcohol Amount: 1-2/WEEK Substance Use Type: None Smoking Status (MU): Never Smoked Tobacco Have You Smoked in the Last Year: No - Immunization History Most Recent Influenza Vaccination: 09/07/18 Most Recent Pneumonia Vaccination: never Review of Systems All Other Systems Reviewed And Are Negative: Yes Constitutional: Negative: Fever, Chills Eyes: Positive: Drainage, Eye Redness. Negative: Blurred Vision, Diplopia, Photophobia ENT: Positive: Sore Throat, Nasal Discharge, Sinus Congestion. Negative: Ear Ache, Sinus Pain/Tenderness Respiratory: Positive: Cough. Negative: Shortness Of Breath Cardiovascular: Negative: Chest Pain Gastrointestinal: Positive: Negative Genitourinary: Positive: Negative Musculoskeletal: Positive: Negative Neurological: Positive: Negative Is Patient Immunocompromised?: No Physical Exam - Summary Physical Exam Summary: GENERAL APPEARANCE: Well developed, well nourished, alert and cooperative, and appears to be in no acute distress. EYES: Conjunctiva clear. No drainage. EARS: External auditory canals and tympanic membranes clear, hearing grossly intact. NOSE: Mild-moderate nasal congestion. No nasal discharge. THROAT: Mild pharyngeal erythema with post-nasal drip. No tonsilar inflammation , swelling, exudate, or lesions. Uvula midline. NECK: Neck supple, non-tender without lymphadenopathy. CARDIAC: Normal S1 and S2. No S3, S4 or murmurs. Rhythm is regular. There is no peripheral edema, cyanosis or pallor. Extremities are warm and well perfused. Capillary refill is less than 2 seconds. Peripheral pulses intact. LUNGS: Clear to auscultation without rales, rhonchi, wheezing or diminished breath sounds. Cough not observed. ABDOMEN: Positive bowel sounds. Soft, nondistended, nontender. No guarding or rebound. No masses or hepatosplenomegally. MUSKULOSKELETAL: ROM intact to all extremities. No joint erythema or tenderness. Normal muscular development. Normal gait. SKIN: Skin normal color, texture and turgor with no lesions or eruptions. Triage Information Reviewed: Yes Vital Signs: Initial Vital Signs Temp 99.2 F 12/06/19 11:14 Pulse 103 12/06/19 11:14 Resp 18 12/06/19 11:14 BP 132/74 12/06/19 11:14 Pulse Ox 97 12/06/19 11:14 Vital Signs Reviewed: Yes Throat Pain/Nasal Course/Dx - Course Course Of Treatment: 24-year-old female history of asthma presents with one-week history of nasal congestion, sore throat, chest congestion, and cough. States today noticed some right eye redness and drainage. States had some mild wheezing at the onset of symptoms but has not had to use her rescue inhaler in the past few days. Her [id number] son has been sick with similar symptoms for the past 2 weeks and was diagnosed with acute bacterial rhinosinusitis and placed on an antibiotic. Denies fever, chills, ear pain, chest pain, or shortness of breath. Afebrile. Vital signs stable. Patient had mild to moderate nasal congestion, normal TMs, become pharyngeal erythema with postnasal drip, no cervical lymphadenopathy, clear metal breath sounds, and otherwise unremarkable exam. Discussed with patient that her symptoms are consistent with an upper respiratory infection and considering her child was diagnosed with an acute bacterial rhinosinusitis we'll go ahead and place her on doxycycline 100 mg twice a day 7 days as well as recommend symptomatic treatment. She is to follow-up with her primary care provider in 3-5 days if symptoms are not improving. Anticipatory guidance and warning symptoms reviewed with the patient. Verbalizes understanding and agrees with plan of care. - Differential Dx/Diagnosis Differential Diagnosis/HQI/PQRI: Otitis Media, Pharyngitis, Sinusitis, URI, Other - Conjunctivitis Provider Diagnosis: URI (upper respiratory infection) Discharge ED - Sign-Out/Discharge Documenting (check all that apply): Patient Departure All imaging exams completed and their final reports reviewed: No Studies - Discharge Plan Condition: Stable Disposition: HOME Prescriptions: Doxycycline Hyclate 100 mg PO BID 7 Days #14 tablet Patient Education Materials: Upper Respiratory Infection (ED) Referrals: Daljit Johnson MD [Primary Care Provider] - 3 Days Additional Instructions: Your history and exam are consistent with an upper respiratory infection. We will start you on an antibiotic to treat for the infection. Start doxycycline 100 mg twice a day for 7 days. Do not drink milk, eat milk products, or takes supplements containing calcium for at least 2 hours before after taking this medication as the calcium can affect the absorption. This antibiotic will also make you more sensitive to the sunlight therefore it is recommended that you try to avoid sun exposure while taking. Drink plenty of fluids to avoid dehydration especially if you are running any fever. Use a saline rinse kit such as Neti Pot or NeilMed at least twice a day to help thin secretions and promote drainage of the sinuses. Use over the counter fluticasone (Flonase) nasal spray 2 sprays each nostril once daily. Take over the counter acetaminophen (Tylenol) or ibuprofen (Advil, Motrin) according to directions as needed for pain or fever. Follow up with your primary care provider in 3-5 days if no improvement in symptoms. Seek immediate medical attention in the emergency room if you have fever greater than 100.5 F despite taking acetaminophen or ibuprofen, have chest pain , difficulty breathing, are unable to swallow, or have any worsening of symptoms. - Billing Disposition and Condition Condition: STABLE Disposition: Home
== END 2019-12-06 12:25 | disposition home or self-care (01) ==
LOC: UCEAST 10:58
DX: J06.9 Acute upper respiratory infection, unspecified (principal); J45.909 Unspecified asthma, uncomplicated; F32.9 Major depressive disorder, single episode, unspecified; Z88.0 Allergy status to penicillin; Z79.899 Other long term (current) drug therapy
CPT/HCPCS: 99212; G0463